=== PATIENT | male | born 1995 | race African-American/Black ===

== ENCOUNTER 2019-03-26 18:17 | Inpatient (IN) | payer MEDICAID ==
[~2019-03-26] VITALS: Ht 175.3 cm; Wt 74.3 kg
[2019-03-26] MEDS ORDERED: DIVA125T32 PO (18:48)
[2019-03-26] MEDS ORDERED: CHLO10 PO (18:48)
[2019-03-26] MEDS ORDERED: OLAN2.5T3 PO (18:48)
[2019-03-26 19:28] LABS: BASOPHILS % (AUTO) 0.6 % (0.0-2.0); EOSINOPHILS % (AUTO) 7.7 % (1.0-6.0); HEMATOCRIT 38.6 % (41-53); HEMOGLOBIN 12.3 g/dL (13.5-17.5); LYMPHOCYTES # (AUTO) 1.6 K/uL (1.0-4.8); LYMPHOCYTES % (AUTO) 37.8 % (22.0-44.0); MEAN CORPUSCULAR HGB CONC 31.8 G/dL (31.0-37.0); MEAN CORPUSCULAR VOLUME 72 fL (80-100); MONOCYTES # (AUTO) 0.2 K/uL (0.1-1.0); MONOCYTES % (AUTO) 5.7 % (2.0-9.0); NEUTROPHILS % (AUTO) 48.2 % (40.0-70.0); PLATELET COUNT (AUTO) 196 K/uL (150-450); RED BLOOD CELL COUNT(AUTO) 5.33 MIL/uL (4.50-5.90); RED CELL DISTRIBUTION WIDTH 15.6 % (11.5-14.5)
[2019-03-26 19:38] LABS: ANION GAP 7 mmol/L (8-16); CALCIUM, TOTAL 9.1 mg/dL (8.8-10.5); CARBON DIOXIDE 29 mmol/L (22-29); CHLORIDE 106 mmol/L (98-107); CREATININE 1.06 mg/dL (0.60-1.30); GLOMERULAR FILTR. RATE CALC > 60 mL/min (>60); GLUCOSE,RANDOM 86 mg/dL (70-110); POTASSIUM 3.8 mmol/L (3.5-5.1); SODIUM SERUM 142 mmol/L (136-145); UREA NITROGEN, BLOOD 10 mg/dL (7-18)
[2019-03-26 19:45] LABS: ALANINE AMINOTRANSFERASE 24 U/L (12-78); ALBUMIN 3.6 g/dL (3.4-5.0); ALKALINE PHOSPHATASE 75 U/L (46-116); ASPARTATE AMINOTRANSFERASE 27 U/L (15-37); BILIRUBIN,TOTAL 0.6 mg/dL (0.1-1.0); TOTAL PROTEIN, SERUM 6.9 g/dL (6.4-8.2); VALPROIC ACID 45 mcg/mL (50-100)
[2019-03-26] MEDS: HALOPERIDOL 5 MG TABLET PO PRN (21:50)
[2019-03-26] MEDS: ZOLPIDEM TARTRATE 10 MG TABLET PO PRN (21:51)
[2019-03-26] MEDS: LORazepam 2 MG TABLET PO PRN (21:51)
[2019-03-26 22:16] VITALS: BP 151/81
[2019-03-26] MEDS ORDERED: CloNIDine HCL 0.1 MG TABLET PO PRN (22:45)
[2019-03-26] MEDS ORDERED: ONDANSETRON HCL 4 MG TABLET PO PRN (22:45)
[2019-03-26] MEDS ORDERED: BENZOCAINE/MENTHOL LOZENGE MM PRN (22:45)
[2019-03-26] MEDS ORDERED: IBUPROFEN 600 MG TABLET PO PRN (22:45)
[2019-03-26] MEDS ORDERED: MAGNESIUM HYDROXIDE SUSPENSION 30 ML UDCUP PO PRN (22:45)
[2019-03-26] MEDS ORDERED: BACITRACIN 28.4 GM OINTMENT TP PRN (22:45)
[2019-03-26] MEDS ORDERED: ACETAMINOPHEN 325 MG TABLET PO PRN (22:45)
[2019-03-26] MEDS ORDERED: LOPERAMIDE HCL 2 MG CAPSULE PO PRN (22:45)
[2019-03-26] MEDS ORDERED: PETROLATUM,WHITE 28 GM JELLY TP PRN (22:45)
[2019-03-26] MEDS ORDERED: ALBUTEROL SULFATE HFA 90 MCG/PUFF 8 GM INHALER IH PRN (22:45)
[2019-03-26] MEDS ORDERED: MAG HYDROX/AL HYDROX/SIMETH ES 30 ML SUSPENSION UDCUP PO PRN (22:45)
[2019-03-27 00:11] VITALS: BP 146/86
[2019-03-27] MEDS: DOCUSATE SODIUM 100 MG CAPSULE PO SCH (09:30)
[2019-03-27] MEDS: OMEPRAZOLE 20 MG CAPSULE PO SCH (09:30)
[2019-03-27 11:20] VITALS: BP 118/74
[2019-03-27 16:00] VITALS: BP 131/80
[2019-03-27] MEDS: ChlorproMAZINE HCL 50 MG TABLET PO SCH (20:09)
[2019-03-27] MEDS: LORazepam 2 MG TABLET PO PRN (23:10)
[2019-03-27] MEDS: HALOPERIDOL 5 MG TABLET PO PRN (23:10)
[2019-03-28 00:02] VITALS: BP 142/92
[2019-03-28] MEDS: ZOLPIDEM TARTRATE 10 MG TABLET PO PRN ×2 (00:08→20:21)
[2019-03-28 08:05] VITALS: BP 134/73
[2019-03-28] MEDS: DOCUSATE SODIUM 100 MG CAPSULE PO SCH (09:22)
[2019-03-28] MEDS: FLUoxetine HCL 20 MG CAPSULE PO SCH (09:23)
[2019-03-28] MEDS: OMEPRAZOLE 20 MG CAPSULE PO SCH (09:23)
[2019-03-28 16:05] VITALS: BP 131/80
[2019-03-28] MEDS: ChlorproMAZINE HCL 50 MG TABLET PO SCH (20:20)
[2019-03-29 08:12] VITALS: BP 121/71
[2019-03-29] MEDS: FLUoxetine HCL 20 MG CAPSULE PO SCH (08:12)
[2019-03-29] MEDS: DOCUSATE SODIUM 100 MG CAPSULE PO SCH (08:12)
[2019-03-29] MEDS: OMEPRAZOLE 20 MG CAPSULE PO SCH (08:12)
[2019-03-29 18:03] VITALS: BP 133/65
[2019-03-29] MEDS: ChlorproMAZINE HCL 50 MG TABLET PO SCH (20:27)
[2019-03-29] MEDS: ZOLPIDEM TARTRATE 10 MG TABLET PO PRN (23:09)
[2019-03-30] VITALS: BP 141/77
[2019-03-30] MEDS: LORazepam 2 MG TABLET PO PRN (00:11)
[2019-03-30] MEDS: FLUoxetine HCL 20 MG CAPSULE PO SCH (08:42)
[2019-03-30] MEDS: DOCUSATE SODIUM 100 MG CAPSULE PO SCH (08:42)
[2019-03-30] MEDS: OMEPRAZOLE 20 MG CAPSULE PO SCH (08:42)
[2019-03-30 10:45] VITALS: BP 117/58
[2019-03-30 19:06] VITALS: BP 125/79
[2019-03-30] MEDS: ChlorproMAZINE HCL 50 MG TABLET PO SCH (20:22)
[2019-03-31] VITALS: BP 135/94
[2019-03-31] MEDS: LORazepam 2 MG TABLET PO PRN (00:07)
[2019-03-31] MEDS: ZOLPIDEM TARTRATE 10 MG TABLET PO PRN (00:07)
[2019-03-31] MEDS ORDERED: MULTIVITAMINS WITH IRON TABLET PO SCH (08:00)
[2019-03-31 08:11] VITALS: BP 128/71
[2019-03-31] MEDS: DOCUSATE SODIUM 100 MG CAPSULE PO SCH (09:04)
[2019-03-31] MEDS: OMEPRAZOLE 20 MG CAPSULE PO SCH (09:04)
[2019-03-31] MEDS: FLUoxetine HCL 20 MG CAPSULE PO SCH (09:04)
[2019-03-31] MEDS ORDERED: FLUO-191 PO (14:18)
[2019-03-31] MEDS ORDERED: DSS100 PO (14:20)
[2019-03-31] MEDS ORDERED: MVITFE PO (14:21)
[2019-03-31] MEDS ORDERED: OMEP20 PO (14:21)
== END 2019-03-31 15:05 | disposition home or self-care (01) | DRG 751 ==
LOC: EMS 18:19 → 3EI 21:22
PROVIDERS: ADMIT Psychiatry & Neurology Psychiatry; ATTEND Psychiatry & Neurology Psychiatry
DX: F33.2 Major depressive disorder, recurrent severe without psychotic features (principal); R45.851 Suicidal ideations; F25.0 Schizoaffective disorder, bipolar type; F12.90 Cannabis use, unspecified, uncomplicated; F17.200 Nicotine dependence, unspecified, uncomplicated; F41.9 Anxiety disorder, unspecified; F60.3 Borderline personality disorder; F90.9 Attention-deficit hyperactivity disorder, unspecified type; G47.00 Insomnia, unspecified; K59.00 Constipation, unspecified; Z59.0 Homelessness; Z91.5 Personal history of self-harm; Z71.6 Tobacco abuse counseling
CPT/HCPCS: G0480

== ENCOUNTER 2019-04-06 15:01 | Inpatient (IN) | payer MEDICAID ==
[~2019-04-06] VITALS: Ht 175.3 cm; Wt 70.6 kg
[~2019-04-06 15:01] MED LIST: CHLO10 PO; DSS100 PO; FLUO-191 PO; MVITFE PO; OMEP20 PO
[2019-04-06 17:03] LABS: BASOPHILS % (AUTO) 0.4 % (0.0-2.0); EOSINOPHILS % (AUTO) 1.7 % (1.0-6.0); HEMATOCRIT 43.3 % (41-53); LYMPHOCYTES # (AUTO) 2.1 K/uL (1.0-4.8); LYMPHOCYTES % (AUTO) 26.2 % (22.0-44.0); MEAN CORPUSCULAR HEMOGLOBIN 23.7 pg (26.0-34.0); MEAN CORPUSCULAR HGB CONC 32.2 G/dL (31.0-37.0); MEAN CORPUSCULAR VOLUME 74 fL (80-100); MONOCYTES # (AUTO) 0.7 K/uL (0.1-1.0); MONOCYTES % (AUTO) 9.4 % (2.0-9.0); NEUTROPHILS # (AUTO) 4.9 K/uL (1.8-7.7); NEUTROPHILS % (AUTO) 62.3 % (40.0-70.0); PLATELET COUNT (AUTO) 260 K/uL (150-450); RED BLOOD CELL COUNT(AUTO) 5.89 MIL/uL (4.50-5.90); RED CELL DISTRIBUTION WIDTH 14.6 % (11.5-14.5)
[2019-04-06 17:38] LABS: ANION GAP 8 mmol/L (8-16); CALCIUM, TOTAL 10.3 mg/dL (8.8-10.5); CARBON DIOXIDE 27 mmol/L (22-29); CHLORIDE 100 mmol/L (98-107); CREATININE 1.19 mg/dL (0.60-1.30); GLOMERULAR FILTR. RATE CALC > 60 mL/min (>60); GLUCOSE,RANDOM 91 mg/dL (70-110); POTASSIUM 4.1 mmol/L (3.5-5.1); SODIUM SERUM 135 mmol/L (136-145); UREA NITROGEN, BLOOD 18 mg/dL (7-18)
[2019-04-06 17:44] LABS: ALANINE AMINOTRANSFERASE 26 U/L (12-78); ALBUMIN 4.5 g/dL (3.4-5.0); ALKALINE PHOSPHATASE 91 U/L (46-116); ASPARTATE AMINOTRANSFERASE 36 U/L (15-37); BILIRUBIN,TOTAL 1.1 mg/dL (0.1-1.0); TOTAL PROTEIN, SERUM 8.3 g/dL (6.4-8.2)
[2019-04-06] MEDS ORDERED: DIVA500T52 PO (18:32)
[2019-04-06] MEDS ORDERED: CHLO50 PO (18:41)
[2019-04-06 19:08] LABS: AMPHET/METH SCREEN,URINE NEGATIVE (NEGATIVE); BARBITURATE SCREEN, URINE NEGATIVE (NEGATIVE); BENZODIAZEPINES SCREEN,URINE NEGATIVE (NEGATIVE); CANNABINOID SCREEN,URINE POSITIVE (NEGATIVE); COCAINE SCREEN,URINE NEGATIVE (NEGATIVE); METHADONE SCREEN, URINE NEGATIVE (NEGATIVE); OPIATE SCREEN,URINE NEGATIVE (NEGATIVE)
[2019-04-06 19:11] LABS: PHENCYCLIDINE SCREEN,URINE NEGATIVE (NEGATIVE)
[2019-04-06 21:11] LABS: VALPROIC ACID < 3 mcg/mL (50-100)
[2019-04-06] MEDS ORDERED: HALOPERIDOL 5 MG TABLET PO PRN (22:15)
[2019-04-06] MEDS ORDERED: ZOLPIDEM TARTRATE 10 MG TABLET PO PRN (22:15)
[2019-04-06] MEDS ORDERED: LORazepam 2 MG TABLET PO PRN (22:15)
[2019-04-07 02:33] VITALS: BP 119/79
[2019-04-07 07:39] LABS: HEMOGLOBIN A1C 5.7 % (4.5-6.2)
[2019-04-07 08:03] LABS: CHOL/HDL RATIO 2.2 (4.2-7.3); FREE T4 (FREE THYROXINE) 0.93 ng/dL (0.76-1.46); THYROID STIMULATING HORMONE 0.87 uIU/mL (0.36-3.74)
[2019-04-07 08:17] VITALS: BP 104/59
[2019-04-07] MEDS ORDERED: CloNIDine HCL 0.1 MG TABLET PO PRN (08:45)
[2019-04-07] MEDS ORDERED: PETROLATUM,WHITE 28 GM JELLY TP PRN (08:45)
[2019-04-07] MEDS ORDERED: BENZOCAINE/MENTHOL LOZENGE MM PRN (08:45)
[2019-04-07] MEDS ORDERED: IBUPROFEN 600 MG TABLET PO PRN (08:45)
[2019-04-07] MEDS ORDERED: LOPERAMIDE HCL 2 MG CAPSULE PO PRN (08:45)
[2019-04-07] MEDS ORDERED: BACITRACIN 28.4 GM OINTMENT TP PRN (08:45)
[2019-04-07] MEDS ORDERED: ONDANSETRON HCL 4 MG TABLET PO PRN (08:45)
[2019-04-07] MEDS ORDERED: MAGNESIUM HYDROXIDE SUSPENSION 30 ML UDCUP PO PRN (08:45)
[2019-04-07] MEDS ORDERED: MAG HYDROX/AL HYDROX/SIMETH ES 30 ML SUSPENSION UDCUP PO PRN (08:45)
[2019-04-07] MEDS ORDERED: ALBUTEROL SULFATE HFA 90 MCG/PUFF 8 GM INHALER IH PRN (08:45)
[2019-04-07] MEDS ORDERED: ACETAMINOPHEN 325 MG TABLET PO PRN (08:45)
[2019-04-07] MEDS: DOCUSATE SODIUM 100 MG CAPSULE PO SCH (09:20)
[2019-04-07] MEDS: OMEPRAZOLE 20 MG CAPSULE PO SCH (09:20)
[2019-04-07] MEDS: ChlorproMAZINE HCL 50 MG TABLET PO SCH (16:16)
[2019-04-07 16:58] VITALS: BP 127/68
[2019-04-08 07:04] VITALS: BP 129/65
[2019-04-08] MEDS: OMEPRAZOLE 20 MG CAPSULE PO SCH (08:20)
[2019-04-08] MEDS: FLUoxetine HCL 20 MG CAPSULE PO SCH (08:20)
[2019-04-08] MEDS: ChlorproMAZINE HCL 50 MG TABLET PO SCH ×2 (08:20→16:32)
[2019-04-08] MEDS: DOCUSATE SODIUM 100 MG CAPSULE PO SCH (08:20)
[2019-04-08 08:31] VITALS: BP 140/83
[2019-04-08 17:34] VITALS: BP 126/60
[2019-04-08] MEDS ORDERED: LORazepam 2 MG/ML VIAL ONE (19:13)
[2019-04-08] MEDS ORDERED: HALOPERIDOL LACTATE 5 MG/ML VIAL ONE (19:14)
[2019-04-08] MEDS ORDERED: DiphenhydrAMINE HCL 50 MG/ML VIAL ONE (19:14)
[2019-04-08] MEDS ORDERED: LORazepam 2 MG/ML VIAL IM ONE (19:15)
[2019-04-08] MEDS ORDERED: HALOPERIDOL LACTATE 5 MG/ML VIAL IM ONE (19:15)
[2019-04-08] MEDS ORDERED: DiphenhydrAMINE HCL 50 MG/ML VIAL IM ONE (19:15)
[2019-04-09 06:33] VITALS: BP 114/60
[2019-04-09 08:43] VITALS: BP 115/60
[2019-04-09] MEDS: DOCUSATE SODIUM 100 MG CAPSULE PO SCH (09:27)
[2019-04-09] MEDS: ChlorproMAZINE HCL 50 MG TABLET PO SCH ×2 (09:27→16:22)
[2019-04-09] MEDS: OMEPRAZOLE 20 MG CAPSULE PO SCH (09:27)
[2019-04-09] MEDS: FLUoxetine HCL 20 MG CAPSULE PO SCH (09:27)
[2019-04-09 16:00] VITALS: BP 127/68
[2019-04-10 06:29] VITALS: BP 122/65
[2019-04-10] MEDS ORDERED: DSS100 PO (08:15)
[2019-04-10] MEDS ORDERED: OMEP20 PO (08:15)
[2019-04-10] MEDS ORDERED: FLUO-191 PO (08:15)
[2019-04-10 08:21] VITALS: BP 118/62
[2019-04-10] MEDS: ChlorproMAZINE HCL 50 MG TABLET PO SCH (09:06)
[2019-04-10] MEDS: FLUoxetine HCL 20 MG CAPSULE PO SCH (09:06)
[2019-04-10] MEDS: OMEPRAZOLE 20 MG CAPSULE PO SCH (09:06)
[2019-04-10] MEDS: DOCUSATE SODIUM 100 MG CAPSULE PO SCH (09:06)
[2019-04-10 16:16] VITALS: BP 136/79
== END 2019-04-10 16:30 | disposition home or self-care (01) | DRG 751 ==
LOC: EMS 15:04 → B2S 22:00 → B3A 04-08 19:45
PROVIDERS: ADMIT Psychiatry & Neurology Psychiatry; ATTEND Psychiatry & Neurology Psychiatry
DX: F33.2 Major depressive disorder, recurrent severe without psychotic features (principal); F20.9 Schizophrenia, unspecified; R45.851 Suicidal ideations; F12.90 Cannabis use, unspecified, uncomplicated; F41.9 Anxiety disorder, unspecified; F90.9 Attention-deficit hyperactivity disorder, unspecified type; F17.210 Nicotine dependence, cigarettes, uncomplicated; F60.3 Borderline personality disorder; G47.00 Insomnia, unspecified; K59.00 Constipation, unspecified; Z59.0 Homelessness; Z91.5 Personal history of self-harm; Z91.018 Allergy to other foods; Z56.0 Unemployment, unspecified; Z79.899 Other long term (current) drug therapy
CPT/HCPCS: 83036; 84439; 84443; 87081; G0480; J1200; J1630; J2060

== ENCOUNTER 2019-06-05 10:02 | Inpatient (IN) | payer MEDICAID ==
[~2019-06-05] VITALS: Ht 175.3 cm; Wt 72.1 kg
[~2019-06-05 10:02] MED LIST changes: -CHLO10 PO; +CHLO50 PO; -MVITFE PO
[2019-06-05] MEDS ORDERED: DIVA125T32 PO (10:21)
[2019-06-05] MEDS ORDERED: LEVO25TA9 PO (10:21)
[2019-06-05 10:54] LABS: BASOPHILS % (AUTO) 0.7 % (0.0-2.0); EOSINOPHILS % (AUTO) 7.5 % (1.0-6.0); HEMATOCRIT 40.5 % (41-53); HEMOGLOBIN 12.6 g/dL (13.5-17.5); LYMPHOCYTES # (AUTO) 1.9 K/uL (1.0-4.8); LYMPHOCYTES % (AUTO) 39.6 % (22.0-44.0); MEAN CORPUSCULAR HEMOGLOBIN 23.1 pg (26.0-34.0); MEAN CORPUSCULAR HGB CONC 31.2 G/dL (31.0-37.0); MEAN CORPUSCULAR VOLUME 74 fL (80-100); MONOCYTES # (AUTO) 0.4 K/uL (0.1-1.0); NEUTROPHILS # (AUTO) 2.2 K/uL (1.8-7.7); NEUTROPHILS % (AUTO) 44.2 % (40.0-70.0); PLATELET COUNT (AUTO) 210 K/uL (150-450); RED BLOOD CELL COUNT(AUTO) 5.47 MIL/uL (4.50-5.90); RED CELL DISTRIBUTION WIDTH 15.6 % (11.5-14.5)
[2019-06-05 11:05] LABS: ANION GAP 10 mmol/L (8-16); CALCIUM, TOTAL 9.5 mg/dL (8.8-10.5); CARBON DIOXIDE 27 mmol/L (22-29); CHLORIDE 102 mmol/L (98-107); CREATININE 0.86 mg/dL (0.60-1.30); GLOMERULAR FILTR. RATE CALC > 60 mL/min (>60); GLUCOSE,RANDOM 112 mg/dL (70-110); POTASSIUM 4.1 mmol/L (3.5-5.1); SODIUM SERUM 139 mmol/L (136-145); UREA NITROGEN, BLOOD 17 mg/dL (7-18)
[2019-06-05 11:11] LABS: ALANINE AMINOTRANSFERASE 20 U/L (12-78); ALBUMIN 4.1 g/dL (3.4-5.0); ALKALINE PHOSPHATASE 72 U/L (46-116); ASPARTATE AMINOTRANSFERASE 27 U/L (15-37); BILIRUBIN,TOTAL 0.5 mg/dL (0.1-1.0); TOTAL PROTEIN, SERUM 7.5 g/dL (6.4-8.2); VALPROIC ACID 59 mcg/mL (50-100)
[2019-06-05] MEDS ORDERED: BusPIRone HCL 10 MG TABLET PO ONE (11:30)
[2019-06-05 14:05] LABS: AMPHET/METH SCREEN,URINE NEGATIVE (NEGATIVE); BARBITURATE SCREEN, URINE NEGATIVE (NEGATIVE); BENZODIAZEPINES SCREEN,URINE NEGATIVE (NEGATIVE); CANNABINOID SCREEN,URINE POSITIVE (NEGATIVE); COCAINE SCREEN,URINE NEGATIVE (NEGATIVE); METHADONE SCREEN, URINE NEGATIVE (NEGATIVE); OPIATE SCREEN,URINE NEGATIVE (NEGATIVE); PHENCYCLIDINE SCREEN,URINE NEGATIVE (NEGATIVE)
[2019-06-05] MEDS: ChlorproMAZINE HCL 50 MG TABLET PO SCH (18:55)
[2019-06-05] MEDS ORDERED: ONDANSETRON HCL 4 MG TABLET PO PRN (19:15)
[2019-06-05] MEDS ORDERED: PETROLATUM,WHITE 28 GM JELLY TP PRN (19:15)
[2019-06-05] MEDS ORDERED: MAG HYDROX/AL HYDROX/SIMETH ES 30 ML SUSPENSION UDCUP PO PRN (19:15)
[2019-06-05] MEDS ORDERED: IBUPROFEN 600 MG TABLET PO PRN (19:15)
[2019-06-05] MEDS ORDERED: LOPERAMIDE HCL 2 MG CAPSULE PO PRN (19:15)
[2019-06-05] MEDS ORDERED: BACITRACIN 28.4 GM OINTMENT TP PRN (19:15)
[2019-06-05] MEDS ORDERED: CloNIDine HCL 0.1 MG TABLET PO PRN (19:15)
[2019-06-05] MEDS ORDERED: BENZOCAINE/MENTHOL LOZENGE MM PRN (19:15)
[2019-06-05] MEDS ORDERED: MAGNESIUM HYDROXIDE SUSPENSION 30 ML UDCUP PO PRN (19:15)
[2019-06-05] MEDS ORDERED: ACETAMINOPHEN 325 MG TABLET PO PRN (19:15)
[2019-06-05] MEDS ORDERED: ALBUTEROL SULFATE HFA 90 MCG/PUFF 8 GM INHALER IH PRN (19:15)
[2019-06-05 19:20] VITALS: BP 139/78
[2019-06-05] MEDS: HALOPERIDOL 5 MG TABLET PO PRN (20:12)
[2019-06-05] MEDS: ZOLPIDEM TARTRATE 10 MG TABLET PO PRN (20:12)
[2019-06-06 06:20] VITALS: BP 115/71
[2019-06-06 08:02] VITALS: BP 114/60
[2019-06-06] MEDS: FLUoxetine HCL 20 MG CAPSULE PO SCH (08:30)
[2019-06-06] MEDS: ChlorproMAZINE HCL 50 MG TABLET PO SCH ×2 (08:30→16:44)
[2019-06-06] MEDS: DOCUSATE SODIUM 100 MG CAPSULE PO SCH (08:30)
[2019-06-06] MEDS: OMEPRAZOLE 20 MG CAPSULE PO SCH (08:31)
[2019-06-06] MEDS: NICOTINE 21 MG/24 HOUR PATCH TD SCH (09:00)
[2019-06-06 16:22] VITALS: BP 105/60
[2019-06-06] MEDS: LORazepam 2 MG TABLET PO PRN (16:44)
[2019-06-06] MEDS: HALOPERIDOL 5 MG TABLET PO PRN (20:38)
[2019-06-06] MEDS: ZOLPIDEM TARTRATE 10 MG TABLET PO PRN (20:38)
[2019-06-07] MEDS: LORazepam 2 MG TABLET PO PRN ×2 (01:48→16:46)
[2019-06-07 02:17] VITALS: BP 112/68
[2019-06-07 08:18] VITALS: BP 108/66
[2019-06-07] MEDS: ChlorproMAZINE HCL 50 MG TABLET PO SCH ×2 (08:33→16:46)
[2019-06-07] MEDS: FLUoxetine HCL 20 MG CAPSULE PO SCH (08:34)
[2019-06-07] MEDS: DOCUSATE SODIUM 100 MG CAPSULE PO SCH (08:35)
[2019-06-07] MEDS: OMEPRAZOLE 20 MG CAPSULE PO SCH (08:35)
[2019-06-07] MEDS: NICOTINE 21 MG/24 HOUR PATCH TD SCH (09:00)
[2019-06-07 16:00] VITALS: BP 122/81
[2019-06-07] MEDS: HALOPERIDOL 5 MG TABLET PO PRN (16:46)
[2019-06-07] MEDS: ZOLPIDEM TARTRATE 10 MG TABLET PO PRN (21:17)
[2019-06-08 06:07] VITALS: BP 118/64
[2019-06-08 08:16] VITALS: BP 138/91
[2019-06-08] MEDS: OMEPRAZOLE 20 MG CAPSULE PO SCH (09:11)
[2019-06-08] MEDS: FLUoxetine HCL 20 MG CAPSULE PO SCH (09:12)
[2019-06-08] MEDS: DOCUSATE SODIUM 100 MG CAPSULE PO SCH (09:12)
[2019-06-08] MEDS: ChlorproMAZINE HCL 50 MG TABLET PO SCH (09:12)
[2019-06-08] MEDS: NICOTINE 21 MG/24 HOUR PATCH TD SCH (09:35)
[2019-06-08] MEDS ORDERED: CHLO50 PO (13:10)
[2019-06-08] MEDS ORDERED: FLUO20CA30 PO (13:10)
== END 2019-06-08 14:09 | disposition home or self-care (01) | DRG 751 ==
LOC: EMS 10:03 → B3A 16:37
PROVIDERS: ADMIT Psychiatry & Neurology Child & Adolescent Psychiatry; ATTEND Psychiatry & Neurology Child & Adolescent Psychiatry
DX: F33.2 Major depressive disorder, recurrent severe without psychotic features (principal); R45.851 Suicidal ideations; F12.90 Cannabis use, unspecified, uncomplicated; Z59.0 Homelessness; F41.9 Anxiety disorder, unspecified; F90.9 Attention-deficit hyperactivity disorder, unspecified type; G47.00 Insomnia, unspecified; K59.00 Constipation, unspecified; F17.200 Nicotine dependence, unspecified, uncomplicated
CPT/HCPCS: G0480

== ENCOUNTER 2019-07-11 17:45 | Inpatient (IN) | payer MEDICAID ==
[~2019-07-11] VITALS: Ht 175.3 cm; Wt 77.2 kg
[~2019-07-11 17:45] MED LIST changes: -DSS100 PO; -FLUO-191 PO; +FLUO20CA30 PO; -OMEP20 PO
[2019-07-11 18:44] LABS: BASOPHILS % (AUTO) 0.8 % (0.0-2.0); EOSINOPHILS % (AUTO) 5.5 % (1.0-6.0); HEMATOCRIT 37.6 % (41-53); LYMPHOCYTES # (AUTO) 2.2 K/uL (1.0-4.8); LYMPHOCYTES % (AUTO) 38.1 % (22.0-44.0); MEAN CORPUSCULAR HEMOGLOBIN 23.5 pg (26.0-34.0); MEAN CORPUSCULAR HGB CONC 31.8 G/dL (31.0-37.0); MEAN CORPUSCULAR VOLUME 74 fL (80-100); MONOCYTES # (AUTO) 0.5 K/uL (0.1-1.0); MONOCYTES % (AUTO) 7.8 % (2.0-9.0); NEUTROPHILS # (AUTO) 2.8 K/uL (1.8-7.7); NEUTROPHILS % (AUTO) 47.8 % (40.0-70.0); PLATELET COUNT (AUTO) 247 K/uL (150-450); RED CELL DISTRIBUTION WIDTH 15.3 % (11.5-14.5)
[2019-07-11 18:54] LABS: ANION GAP 8 mmol/L (8-16); CALCIUM, TOTAL 9.1 mg/dL (8.8-10.5); CARBON DIOXIDE 28 mmol/L (22-29); CHLORIDE 108 mmol/L (98-107); GLOMERULAR FILTR. RATE CALC > 60 mL/min (>60); GLUCOSE,RANDOM 85 mg/dL (70-110); POTASSIUM 4.4 mmol/L (3.5-5.1); SODIUM SERUM 144 mmol/L (136-145); UREA NITROGEN, BLOOD 15 mg/dL (7-18)
[2019-07-11 18:54] LABS: AMPHET/METH SCREEN,URINE NEGATIVE (NEGATIVE); BARBITURATE SCREEN, URINE NEGATIVE (NEGATIVE); BENZODIAZEPINES SCREEN,URINE NEGATIVE (NEGATIVE); CANNABINOID SCREEN,URINE POSITIVE (NEGATIVE); COCAINE SCREEN,URINE NEGATIVE (NEGATIVE); METHADONE SCREEN, URINE NEGATIVE (NEGATIVE); OPIATE SCREEN,URINE NEGATIVE (NEGATIVE); PHENCYCLIDINE SCREEN,URINE NEGATIVE (NEGATIVE)
[2019-07-11 19:01] LABS: ALANINE AMINOTRANSFERASE 13 U/L (12-78); ALBUMIN 3.9 g/dL (3.4-5.0); ALKALINE PHOSPHATASE 76 U/L (46-116); ASPARTATE AMINOTRANSFERASE 19 U/L (15-37); BILIRUBIN,TOTAL 0.6 mg/dL (0.1-1.0); TOTAL PROTEIN, SERUM 7.2 g/dL (6.4-8.2)
[2019-07-11] MEDS ORDERED: DiphenhydrAMINE HCL 50 MG/ML VIAL IM ONE (20:15)
[2019-07-11] MEDS ORDERED: LORazepam 2 MG/ML VIAL IM ONE (20:15)
[2019-07-11] MEDS ORDERED: HALOPERIDOL LACTATE 5 MG/ML VIAL IM ONE (20:15)
[2019-07-11] MEDS ORDERED: HALOPERIDOL 5 MG TABLET PO PRN (21:00)
[2019-07-12 02:56] VITALS: BP 122/72
[2019-07-12] MEDS ORDERED: INFLUENZA VIRUS VACCINE QVS 2019-20 (3YR+)/PF 60 MCG/0.5 ML SYRINGE IM ONE (03:30)
[2019-07-12 08:00] VITALS: BP 116/60
[2019-07-12] MEDS ORDERED: MAG HYDROX/AL HYDROX/SIMETH ES 30 ML SUSPENSION UDCUP PO PRN (08:30)
[2019-07-12] MEDS ORDERED: LOPERAMIDE HCL 2 MG CAPSULE PO PRN (08:30)
[2019-07-12] MEDS ORDERED: PETROLATUM,WHITE 28 GM JELLY TP PRN (08:30)
[2019-07-12] MEDS ORDERED: IBUPROFEN 400 MG TABLET PO PRN (08:30)
[2019-07-12] MEDS ORDERED: DOCUSATE SODIUM 100 MG CAPSULE PO PRN (08:30)
[2019-07-12] MEDS ORDERED: CloNIDine HCL 0.1 MG TABLET PO PRN (08:30)
[2019-07-12] MEDS ORDERED: GuaiFENesin/D-METHORPHAN [SUGAR-FREE] 200-20MG/10 ML SYRUP UDCUP PO PRN (08:30)
[2019-07-12] MEDS ORDERED: ALBUTEROL SULFATE HFA 90 MCG/PUFF 8 GM INHALER IH PRN (08:30)
[2019-07-12] MEDS ORDERED: MAGNESIUM HYDROXIDE SUSPENSION 30 ML UDCUP PO PRN (08:30)
[2019-07-12] MEDS ORDERED: ACETAMINOPHEN 325 MG TABLET PO PRN (08:30)
[2019-07-12] MEDS ORDERED: NICOTINE 14 MG/24 HOUR PATCH TD PRN (08:30)
[2019-07-12] MEDS ORDERED: ONDANSETRON HCL 4 MG TABLET PO PRN (08:30)
[2019-07-12] MEDS: FLUoxetine HCL 20 MG CAPSULE PO SCH (09:55)
[2019-07-12] MEDS: ChlorproMAZINE HCL 50 MG TABLET PO SCH ×2 (09:55→20:29)
[2019-07-12] MEDS: LORazepam 2 MG TABLET PO PRN ×2 (09:55→16:17)
[2019-07-12 16:15] VITALS: BP 118/68
[2019-07-12] MEDS: ZOLPIDEM TARTRATE 10 MG TABLET PO PRN (20:29)
[2019-07-13 00:30] VITALS: BP 120/75
[2019-07-13 09:51] VITALS: BP 127/64
[2019-07-13] MEDS: ChlorproMAZINE HCL 50 MG TABLET PO SCH ×2 (10:23→20:01)
[2019-07-13] MEDS: FLUoxetine HCL 20 MG CAPSULE PO SCH (10:24)
[2019-07-13] MEDS: LORazepam 2 MG TABLET PO PRN (14:58)
[2019-07-13 16:00] VITALS: BP 116/65
[2019-07-13] MEDS: ZOLPIDEM TARTRATE 10 MG TABLET PO PRN (21:25)
[2019-07-14 05:34] VITALS: BP 126/84
[2019-07-14] MEDS: FLUoxetine HCL 20 MG CAPSULE PO SCH (09:07)
[2019-07-14] MEDS: ChlorproMAZINE HCL 50 MG TABLET PO SCH (09:07)
[2019-07-14 16:00] VITALS: BP 131/67
== END 2019-07-14 17:25 | disposition home or self-care (01) | DRG 750 ==
LOC: EMS 17:47 → B3A 21:31 → EMS 23:00
DX: F25.1 Schizoaffective disorder, depressive type (principal); R45.851 Suicidal ideations; D64.9 Anemia, unspecified; F12.10 Cannabis abuse, uncomplicated; E03.9 Hypothyroidism, unspecified; F32.9 Major depressive disorder, single episode, unspecified; F90.9 Attention-deficit hyperactivity disorder, unspecified type; F41.9 Anxiety disorder, unspecified; K21.9 Gastro-esophageal reflux disease without esophagitis; K59.00 Constipation, unspecified; F17.210 Nicotine dependence, cigarettes, uncomplicated; Z91.5 Personal history of self-harm; Z28.21 Immunization not carried out because of patient refusal; Z79.899 Other long term (current) drug therapy
CPT/HCPCS: 90686; 96372; G0480; J1200; J1630; J2060

== ENCOUNTER 2019-07-18 15:49 | Inpatient (IN) | payer MEDICAID ==
[~2019-07-18] VITALS: Ht 175.3 cm; Wt 74.8 kg
[2019-07-18 17:10] LABS: BASOPHILS % (AUTO) 1.1 % (0.0-2.0); EOSINOPHILS % (AUTO) 4.5 % (1.0-6.0); HEMATOCRIT 43.2 % (41-53); HEMOGLOBIN 13.7 g/dL (13.5-17.5); LYMPHOCYTES # (AUTO) 1.6 K/uL (1.0-4.8); LYMPHOCYTES % (AUTO) 38.8 % (22.0-44.0); MEAN CORPUSCULAR HEMOGLOBIN 23.5 pg (26.0-34.0); MEAN CORPUSCULAR HGB CONC 31.8 G/dL (31.0-37.0); MEAN CORPUSCULAR VOLUME 74 fL (80-100); MONOCYTES # (AUTO) 0.4 K/uL (0.1-1.0); MONOCYTES % (AUTO) 9.8 % (2.0-9.0); NEUTROPHILS # (AUTO) 1.9 K/uL (1.8-7.7); NEUTROPHILS % (AUTO) 45.8 % (40.0-70.0); PLATELET COUNT (AUTO) 222 K/uL (150-450); RED BLOOD CELL COUNT(AUTO) 5.84 MIL/uL (4.50-5.90); RED CELL DISTRIBUTION WIDTH 15.8 % (11.5-14.5)
[2019-07-18 17:18] LABS: ANION GAP 10 mmol/L (8-16); CALCIUM, TOTAL 9.5 mg/dL (8.8-10.5); CARBON DIOXIDE 28 mmol/L (22-29); CHLORIDE 103 mmol/L (98-107); CREATININE 0.97 mg/dL (0.60-1.30); GLOMERULAR FILTR. RATE CALC > 60 mL/min (>60); GLUCOSE,RANDOM 97 mg/dL (70-110); POTASSIUM 4.1 mmol/L (3.5-5.1); SODIUM SERUM 141 mmol/L (136-145); UREA NITROGEN, BLOOD 12 mg/dL (7-18)
[2019-07-18 17:18] LABS: AMPHET/METH SCREEN,URINE NEGATIVE (NEGATIVE); BARBITURATE SCREEN, URINE NEGATIVE (NEGATIVE); BENZODIAZEPINES SCREEN,URINE NEGATIVE (NEGATIVE); CANNABINOID SCREEN,URINE POSITIVE (NEGATIVE); COCAINE SCREEN,URINE NEGATIVE (NEGATIVE); METHADONE SCREEN, URINE NEGATIVE (NEGATIVE); OPIATE SCREEN,URINE NEGATIVE (NEGATIVE)
[2019-07-18 17:24] LABS: ALANINE AMINOTRANSFERASE 25 U/L (12-78); ALKALINE PHOSPHATASE 70 U/L (46-116); ASPARTATE AMINOTRANSFERASE 25 U/L (15-37); BILIRUBIN,TOTAL 1.1 mg/dL (0.1-1.0); TOTAL PROTEIN, SERUM 7.7 g/dL (6.4-8.2)
[2019-07-18 17:39] LABS: PHENCYCLIDINE SCREEN,URINE NEGATIVE (NEGATIVE)
[2019-07-18 17:50] LABS: PLATELET MORPHOLOGY COMMENT LARGE PLTS PRESENT
[2019-07-18] MEDS ORDERED: OLANZapine 5 MG TABLET PO ONE (20:30)
[2019-07-18] MEDS ORDERED: LORazepam 2 MG TABLET PO ONE (20:30)
[2019-07-18] MEDS ORDERED: DiphenhydrAMINE HCL 25 MG CAPSULE PO ONE (20:30)
[2019-07-19] MEDS ORDERED: INFLUENZA VIRUS VACCINE QVS 2019-20 (3YR+)/PF 60 MCG/0.5 ML SYRINGE IM ONE (05:30)
[2019-07-19 07:16] VITALS: BP_SYST 125; BP_SYST 132; BP_DIAS 71; BP_DIAS 73
[2019-07-19] MEDS ORDERED: LOPERAMIDE HCL 2 MG CAPSULE PO PRN (08:00)
[2019-07-19] MEDS ORDERED: DOCUSATE SODIUM 100 MG CAPSULE PO PRN (08:00)
[2019-07-19] MEDS ORDERED: IBUPROFEN 400 MG TABLET PO PRN (08:00)
[2019-07-19] MEDS ORDERED: MAG HYDROX/AL HYDROX/SIMETH ES 30 ML SUSPENSION UDCUP PO PRN (08:00)
[2019-07-19] MEDS ORDERED: PETROLATUM,WHITE 28 GM JELLY TP PRN (08:00)
[2019-07-19] MEDS ORDERED: ONDANSETRON HCL 4 MG TABLET PO PRN (08:00)
[2019-07-19] MEDS ORDERED: ALBUTEROL SULFATE HFA 90 MCG/PUFF 8 GM INHALER IH PRN (08:00)
[2019-07-19] MEDS ORDERED: NICOTINE 14 MG/24 HOUR PATCH TD PRN (08:00)
[2019-07-19] MEDS ORDERED: GuaiFENesin/D-METHORPHAN [SUGAR-FREE] 200-20MG/10 ML SYRUP UDCUP PO PRN (08:00)
[2019-07-19] MEDS ORDERED: ACETAMINOPHEN 325 MG TABLET PO PRN (08:00)
[2019-07-19] MEDS ORDERED: CloNIDine HCL 0.1 MG TABLET PO PRN (08:00)
[2019-07-19] MEDS ORDERED: MAGNESIUM HYDROXIDE SUSPENSION 30 ML UDCUP PO PRN (08:00)
[2019-07-19 08:37] VITALS: BP 110/61
[2019-07-19 16:17] VITALS: BP 112/64
[2019-07-19] MEDS: ChlorproMAZINE HCL 50 MG TABLET PO SCH (20:21)
[2019-07-19] MEDS: ZOLPIDEM TARTRATE 10 MG TABLET PO PRN (20:24)
[2019-07-20 03:31] VITALS: BP 125/74
[2019-07-20 08:11] LABS: BASOPHILS % (AUTO) 0.9 % (0.0-2.0); EOSINOPHILS % (AUTO) 7.7 % (1.0-6.0); HEMATOCRIT 41.9 % (41-53); HEMOGLOBIN 13.2 g/dL (13.5-17.5); LYMPHOCYTES # (AUTO) 2.9 K/uL (1.0-4.8); LYMPHOCYTES % (AUTO) 54.4 % (22.0-44.0); MEAN CORPUSCULAR HEMOGLOBIN 23.4 pg (26.0-34.0); MEAN CORPUSCULAR HGB CONC 31.5 G/dL (31.0-37.0); MEAN CORPUSCULAR VOLUME 74 fL (80-100); MONOCYTES # (AUTO) 0.6 K/uL (0.1-1.0); MONOCYTES % (AUTO) 11.7 % (2.0-9.0); NEUTROPHILS # (AUTO) 1.3 K/uL (1.8-7.7); NEUTROPHILS % (AUTO) 25.3 % (40.0-70.0); PLATELET COUNT (AUTO) 202 K/uL (150-450); RED BLOOD CELL COUNT(AUTO) 5.63 MIL/uL (4.50-5.90); RED CELL DISTRIBUTION WIDTH 15.3 % (11.5-14.5)
[2019-07-20 08:15] VITALS: BP 112/63
[2019-07-20 08:24] LABS: HEMOGLOBIN A1C 4.8 % (4.5-6.2)
[2019-07-20 08:32] LABS: ALANINE AMINOTRANSFERASE 22 U/L (12-78); ALBUMIN 3.3 g/dL (3.4-5.0); ALKALINE PHOSPHATASE 68 U/L (46-116); ANION GAP 6 mmol/L (8-16); ASPARTATE AMINOTRANSFERASE 17 U/L (15-37); BILIRUBIN,TOTAL 0.5 mg/dL (0.1-1.0); CALCIUM, TOTAL 8.9 mg/dL (8.8-10.5); CARBON DIOXIDE 30 mmol/L (22-29); CHLORIDE 103 mmol/L (98-107); CHOL/HDL RATIO 2.7 (4.2-7.3); CHOLESTEROL 149 mg/dL (131-200); CREATININE 0.93 mg/dL (0.60-1.30); FREE T4 (FREE THYROXINE) 0.89 ng/dL (0.76-1.46); GLOMERULAR FILTR. RATE CALC > 60 mL/min (>60); GLUCOSE,RANDOM 87 mg/dL (70-110); HDL CHOLESTEROL 55 mg/dL (40-60); LDL CHOL (CALC.) 80 mg/dL (0-130); POTASSIUM 4.6 mmol/L (3.5-5.1); SODIUM SERUM 139 mmol/L (136-145); TOTAL PROTEIN, SERUM 6.4 g/dL (6.4-8.2); TRIGLYCERIDES 70 mg/dL (15-150); UREA NITROGEN, BLOOD 17 mg/dL (7-18)
[2019-07-20] MEDS: FLUoxetine HCL 20 MG CAPSULE PO SCH (09:00)
[2019-07-20] MEDS: ChlorproMAZINE HCL 50 MG TABLET PO SCH ×2 (09:00→20:26)
[2019-07-20] MEDS ORDERED: DiphenhydrAMINE HCL 50 MG/ML VIAL ONE (09:02)
[2019-07-20] MEDS ORDERED: LORazepam 2 MG/ML VIAL ONE (09:02)
[2019-07-20] MEDS ORDERED: HALOPERIDOL LACTATE 5 MG/ML VIAL ONE (09:02)
[2019-07-20] MEDS ORDERED: DiphenhydrAMINE HCL 50 MG/ML VIAL IM ONE (09:15)
[2019-07-20] MEDS ORDERED: HALOPERIDOL LACTATE 5 MG/ML VIAL IM ONE (09:15)
[2019-07-20] MEDS ORDERED: LORazepam 2 MG/ML VIAL IM ONE (09:15)
[2019-07-20 16:09] VITALS: BP 112/71
[2019-07-20] MEDS: LORazepam 2 MG TABLET PO PRN ×2 (17:15→21:15)
[2019-07-20] MEDS: ZOLPIDEM TARTRATE 10 MG TABLET PO PRN (20:25)
[2019-07-21 01:25] VITALS: BP 138/80
[2019-07-21 01:28] VITALS: BP 111/72
[2019-07-21] MEDS: ChlorproMAZINE HCL 50 MG TABLET PO SCH ×2 (08:49→20:15)
[2019-07-21] MEDS: FLUoxetine HCL 20 MG CAPSULE PO SCH (08:49)
[2019-07-21 10:31] VITALS: BP 130/75
[2019-07-21] MEDS: LORazepam 2 MG TABLET PO PRN ×2 (11:25→20:15)
[2019-07-21] MEDS ORDERED: LORazepam 2 MG/ML VIAL IM ONE (11:30)
[2019-07-21] MEDS ORDERED: DiphenhydrAMINE HCL 50 MG/ML VIAL IM ONE (11:30)
[2019-07-21] MEDS ORDERED: HALOPERIDOL LACTATE 5 MG/ML VIAL IM ONE (11:30)
[2019-07-21 16:41] VITALS: BP 119/82
[2019-07-21] MEDS: ZOLPIDEM TARTRATE 10 MG TABLET PO PRN (20:15)
[2019-07-21] MEDS: ChlorproMAZINE HCL 50 MG TABLET PO PRN (20:15)
[2019-07-22 01:20] VITALS: BP 135/87
[2019-07-22] MEDS: LORazepam 2 MG TABLET PO PRN ×2 (08:05→11:30)
[2019-07-22] MEDS: ChlorproMAZINE HCL 50 MG TABLET PO SCH (08:05)
[2019-07-22] MEDS: FLUoxetine HCL 20 MG CAPSULE PO SCH (08:06)
[2019-07-22] MEDS: ChlorproMAZINE HCL 50 MG TABLET PO PRN ×2 (08:06→11:29)
[2019-07-22 08:11] VITALS: BP 134/83
== END 2019-07-22 13:36 | disposition home or self-care (01) | DRG 751 ==
LOC: EMS 15:50 → B3A 07-19 00:47
DX: F33.2 Major depressive disorder, recurrent severe without psychotic features (principal); R45.851 Suicidal ideations; E03.9 Hypothyroidism, unspecified; Z59.0 Homelessness; F10.10 Alcohol abuse, uncomplicated; F12.90 Cannabis use, unspecified, uncomplicated; F17.200 Nicotine dependence, unspecified, uncomplicated; F90.9 Attention-deficit hyperactivity disorder, unspecified type; K21.9 Gastro-esophageal reflux disease without esophagitis; K59.00 Constipation, unspecified; Z91.5 Personal history of self-harm; F41.9 Anxiety disorder, unspecified; F60.3 Borderline personality disorder
CPT/HCPCS: 83036; 84439; 87081; 90686; G0480; J1200; J1630; J2060

== ENCOUNTER 2019-08-31 19:51 | Emergency (ER) | payer MEDICAID ==
[~2019-08-31] VITALS: Ht 175.3 cm; Wt 68.2 kg
[2019-08-31] MEDS ORDERED: CHOL100018 PO (21:14)
[2019-08-31] MEDS ORDERED: OLAN5TAB2 PO (21:14)
[2019-08-31] MEDS ORDERED: DIVA-78 PO (21:14)
[2019-08-31] MEDS ORDERED: BUSP10TA23 PO (21:14)
[2019-08-31] MEDS ORDERED: QUET300T2 PO (21:14)
[2019-08-31 22:02] LABS: BASOPHILS % (AUTO) 0.5 % (0.0-2.0); EOSINOPHILS % (AUTO) 6.7 % (1.0-6.0); HEMATOCRIT 41.6 % (41-53); HEMOGLOBIN 13.3 g/dL (13.5-17.5); LYMPHOCYTES # (AUTO) 1.8 K/uL (1.0-4.8); LYMPHOCYTES % (AUTO) 31.2 % (22.0-44.0); MEAN CORPUSCULAR HEMOGLOBIN 23.8 pg (26.0-34.0); MEAN CORPUSCULAR VOLUME 74 fL (80-100); MONOCYTES # (AUTO) 0.7 K/uL (0.1-1.0); MONOCYTES % (AUTO) 11.5 % (2.0-9.0); NEUTROPHILS % (AUTO) 50.1 % (40.0-70.0); PLATELET COUNT (AUTO) 122 K/uL (150-450); RED CELL DISTRIBUTION WIDTH 15.6 % (11.5-14.5)
[2019-08-31 22:15] LABS: ANION GAP 7 mmol/L (8-16); CALCIUM, TOTAL 9.2 mg/dL (8.8-10.5); CARBON DIOXIDE 29 mmol/L (22-29); CHLORIDE 103 mmol/L (98-107); CREATININE 1.06 mg/dL (0.60-1.30); GLOMERULAR FILTR. RATE CALC > 60 mL/min (>60); GLUCOSE,RANDOM 85 mg/dL (70-110); POTASSIUM 3.4 mmol/L (3.5-5.1); SODIUM SERUM 139 mmol/L (136-145); UREA NITROGEN, BLOOD 16 mg/dL (7-18)
[2019-08-31] MEDS ORDERED: PERTUSS(ACELL),DIPH,TET VAC/PF 0.5 ML VIAL IM ONE (22:15)
[2019-08-31] MEDS ORDERED: BACITRACIN 0.9 GM PACKET OINTMENT TP ONE (22:15)
[2019-08-31 22:24] LABS: ALANINE AMINOTRANSFERASE 16 U/L (12-78); ALBUMIN 3.9 g/dL (3.4-5.0); ALKALINE PHOSPHATASE 71 U/L (46-116); ASPARTATE AMINOTRANSFERASE 27 U/L (15-37); BILIRUBIN,TOTAL 0.5 mg/dL (0.1-1.0); TOTAL PROTEIN, SERUM 7.8 g/dL (6.4-8.2)
[2019-09-01 01:08] VITALS: BP 142/68
== END 2019-09-01 01:05 | disposition home or self-care (01) ==
LOC: EMS 19:52
DX: R45.1 Restlessness and agitation (principal); F31.9 Bipolar disorder, unspecified; F20.9 Schizophrenia, unspecified; F17.210 Nicotine dependence, cigarettes, uncomplicated; F12.90 Cannabis use, unspecified, uncomplicated; F19.90 Other psychoactive substance use, unspecified, uncomplicated; Z91.018 Allergy to other foods
CPT/HCPCS: 36415; 73130 ×2; 80053; 85025; 99285; 99406; G0480; 90715

== ENCOUNTER 2019-09-07 22:36 | Inpatient (IN) | payer MEDICAID ==
[~2019-09-07] VITALS: Ht 175.3 cm; Wt 77.3 kg
[~2019-09-07 22:36] MED LIST changes: +BUSP10TA23 PO; -CHLO50 PO; +CHOL100018 PO; +DIVA-78 PO; -FLUO20CA30 PO; +OLAN5TAB2 PO; +QUET300T2 PO
[2019-09-07] MEDS ORDERED: DiphenhydrAMINE HCL 50 MG/ML VIAL ONE (23:59)
[2019-09-07] MEDS ORDERED: LORazepam 2 MG/ML VIAL ONE (23:59)
[2019-09-07] MEDS ORDERED: HALOPERIDOL LACTATE 5 MG/ML VIAL ONE (23:59)
[2019-09-08] MEDS ORDERED: LORazepam 2 MG/ML VIAL IM ONE ×3 (00:45→09:30)
[2019-09-08] MEDS ORDERED: HALOPERIDOL LACTATE 5 MG/ML VIAL IM ONE ×2 (00:45)
[2019-09-08] MEDS ORDERED: DiphenhydrAMINE HCL 50 MG/ML VIAL IM ONE ×3 (00:45→09:30)
[2019-09-08] MEDS ORDERED: ZOLPIDEM TARTRATE 10 MG TABLET PO PRN (01:30)
[2019-09-08] MEDS ORDERED: HALOPERIDOL 5 MG TABLET PO PRN (01:30)
[2019-09-08 03:34] LABS: BASOPHILS % (AUTO) 0.7 % (0.0-2.0); EOSINOPHILS % (AUTO) 4.4 % (1.0-6.0); HEMATOCRIT 41.8 % (41-53); HEMOGLOBIN 13.4 g/dL (13.5-17.5); LYMPHOCYTES # (AUTO) 2.4 K/uL (1.0-4.8); LYMPHOCYTES % (AUTO) 40.6 % (22.0-44.0); MEAN CORPUSCULAR HEMOGLOBIN 23.8 pg (26.0-34.0); MEAN CORPUSCULAR HGB CONC 32.1 G/dL (31.0-37.0); MEAN CORPUSCULAR VOLUME 74 fL (80-100); MONOCYTES # (AUTO) 0.5 K/uL (0.1-1.0); MONOCYTES % (AUTO) 8.7 % (2.0-9.0); NEUTROPHILS # (AUTO) 2.7 K/uL (1.8-7.7); NEUTROPHILS % (AUTO) 45.6 % (40.0-70.0); PLATELET COUNT (AUTO) 144 K/uL (150-450); RED BLOOD CELL COUNT(AUTO) 5.64 MIL/uL (4.50-5.90); RED CELL DISTRIBUTION WIDTH 15.4 % (11.5-14.5)
[2019-09-08 03:45] LABS: ANION GAP 7 mmol/L (8-16); CARBON DIOXIDE 28 mmol/L (22-29); CHLORIDE 105 mmol/L (98-107); CREATININE 1.08 mg/dL (0.60-1.30); GLOMERULAR FILTR. RATE CALC > 60 mL/min (>60); GLUCOSE,RANDOM 75 mg/dL (70-110); POTASSIUM 3.9 mmol/L (3.5-5.1); SODIUM SERUM 140 mmol/L (136-145); UREA NITROGEN, BLOOD 19 mg/dL (7-18)
[2019-09-08 03:51] LABS: ALANINE AMINOTRANSFERASE 18 U/L (12-78); ALBUMIN 3.7 g/dL (3.4-5.0); ALKALINE PHOSPHATASE 70 U/L (46-116); ASPARTATE AMINOTRANSFERASE 37 U/L (15-37); BILIRUBIN,TOTAL 0.6 mg/dL (0.1-1.0); TOTAL PROTEIN, SERUM 7.5 g/dL (6.4-8.2); VALPROIC ACID 44 mcg/mL (50-100)
[2019-09-08 08:52] LABS: AMPHET/METH SCREEN,URINE NEGATIVE (NEGATIVE); BARBITURATE SCREEN, URINE NEGATIVE (NEGATIVE); BENZODIAZEPINES SCREEN,URINE NEGATIVE (NEGATIVE); CANNABINOID SCREEN,URINE POSITIVE (NEGATIVE); COCAINE SCREEN,URINE NEGATIVE (NEGATIVE); METHADONE SCREEN, URINE NEGATIVE (NEGATIVE); OPIATE SCREEN,URINE NEGATIVE (NEGATIVE)
[2019-09-08 08:53] LABS: PHENCYCLIDINE SCREEN,URINE NEGATIVE (NEGATIVE)
[2019-09-08] MEDS ORDERED: MAG HYDROX/AL HYDROX/SIMETH ES 30 ML SUSPENSION UDCUP PO PRN (16:15)
[2019-09-08] MEDS ORDERED: CloNIDine HCL 0.1 MG TABLET PO PRN (16:15)
[2019-09-08] MEDS ORDERED: PETROLATUM,WHITE 28 GM JELLY TP PRN (16:15)
[2019-09-08] MEDS ORDERED: LOPERAMIDE HCL 2 MG CAPSULE PO PRN (16:15)
[2019-09-08] MEDS ORDERED: MAGNESIUM HYDROXIDE SUSPENSION 30 ML UDCUP PO PRN (16:15)
[2019-09-08] MEDS ORDERED: ACETAMINOPHEN 325 MG TABLET PO PRN (16:15)
[2019-09-08] MEDS ORDERED: ALBUTEROL SULFATE HFA 90 MCG/PUFF 8 GM INHALER IH PRN (16:15)
[2019-09-08] MEDS ORDERED: DOCUSATE SODIUM 100 MG CAPSULE PO PRN (16:15)
[2019-09-08] MEDS ORDERED: NICOTINE 14 MG/24 HOUR PATCH TD PRN (16:15)
[2019-09-08] MEDS ORDERED: GuaiFENesin/D-METHORPHAN [SUGAR-FREE] 200-20MG/10 ML SYRUP UDCUP PO PRN (16:15)
[2019-09-08] MEDS ORDERED: ONDANSETRON HCL 4 MG TABLET PO PRN (16:15)
[2019-09-08] MEDS: CHOLECALCIFEROL (VIT D3) 1,000 UNITS TABLET PO SCH ×2 (17:00→22:50)
[2019-09-08] MEDS: ChlorproMAZINE HCL 50 MG TABLET PO SCH (20:37)
[2019-09-09 04:36] VITALS: BP 140/99
[2019-09-09] MEDS: LORazepam 2 MG TABLET PO PRN ×4 (04:39→20:35)
[2019-09-09] MEDS: IBUPROFEN 400 MG TABLET PO PRN (04:39)
[2019-09-09 08:02] VITALS: BP 153/89
[2019-09-09] MEDS: DIVALPROEX SODIUM 500 MG ER TABLET PO SCH ×2 (08:36→16:02)
[2019-09-09] MEDS: ChlorproMAZINE HCL 50 MG TABLET PO SCH ×2 (08:36→20:35)
[2019-09-09] MEDS: CHOLECALCIFEROL (VIT D3) 1,000 UNITS TABLET PO SCH ×2 (08:36→16:02)
[2019-09-09] MEDS: FLUoxetine HCL 20 MG CAPSULE PO SCH (08:36)
[2019-09-09 16:14] VITALS: BP 133/67
[2019-09-10] MEDS: IBUPROFEN 400 MG TABLET PO PRN (00:01)
[2019-09-10 00:12] VITALS: BP 140/87
[2019-09-10] MEDS: DIVALPROEX SODIUM 500 MG ER TABLET PO SCH (08:19)
[2019-09-10] MEDS: FLUoxetine HCL 20 MG CAPSULE PO SCH (08:19)
[2019-09-10] MEDS: ChlorproMAZINE HCL 50 MG TABLET PO SCH (08:20)
[2019-09-10] MEDS: CHOLECALCIFEROL (VIT D3) 1,000 UNITS TABLET PO SCH (08:20)
[2019-09-10 08:28] VITALS: BP 151/74
[2019-09-10 08:44] LABS: CHOL/HDL RATIO 2.1 (4.2-7.3); THYROID STIMULATING HORMONE 1.07 uIU/mL (0.36-3.74)
[2019-09-10] MEDS ORDERED: DIVA-78 PO (11:52)
[2019-09-10] MEDS ORDERED: CHLO50 PO (11:52)
[2019-09-10] MEDS ORDERED: OMEG-135 PO (11:54)
== END 2019-09-10 12:23 | disposition home or self-care (01) | DRG 753 ==
LOC: EMS 22:36 → B3A 09-08 08:41
PROVIDERS: ADMIT Psychiatry & Neurology Psychiatry; ATTEND Psychiatry & Neurology Psychiatry
DX: F31.9 Bipolar disorder, unspecified (principal); R45.851 Suicidal ideations; Z78.1 Physical restraint status; F20.9 Schizophrenia, unspecified; F10.10 Alcohol abuse, uncomplicated; E55.9 Vitamin D deficiency, unspecified; D64.9 Anemia, unspecified; F15.90 Other stimulant use, unspecified, uncomplicated; F17.210 Nicotine dependence, cigarettes, uncomplicated; Z91.5 Personal history of self-harm
CPT/HCPCS: 84443; 96372; 99291; G0480; J1200; J1630; J2060; J3230

== ENCOUNTER 2019-11-05 16:10 | Emergency (ER) | payer MEDICAID ==
[~2019-11-05] VITALS: Ht 175.3 cm; Wt 68.2 kg
[~2019-11-05 16:10] MED LIST changes: -BUSP10TA23 PO; +CHLO50 PO; -CHOL100018 PO; -OLAN5TAB2 PO; +OMEG-135 PO; -QUET300T2 PO
[2019-11-05] MEDS ORDERED: IBUPROFEN 600 MG TABLET PO ONE (19:45)
[2019-11-05 21:11] VITALS: BP 125/87
== END 2019-11-05 21:33 | disposition home or self-care (01) ==
LOC: EMS 16:11
DX: S90.822A Blister (nonthermal), left foot, initial encounter (principal); S90.821A Blister (nonthermal), right foot, initial encounter; R03.0 Elevated blood-pressure reading, without diagnosis of hypertension; F31.9 Bipolar disorder, unspecified; F20.9 Schizophrenia, unspecified; F17.210 Nicotine dependence, cigarettes, uncomplicated; F12.90 Cannabis use, unspecified, uncomplicated; F15.90 Other stimulant use, unspecified, uncomplicated; Z79.899 Other long term (current) drug therapy; Z91.018 Allergy to other foods; X58.XXXA Exposure to other specified factors, initial encounter; Y93.01 Activity, walking, marching and hiking; Y92.89 Other specified places as the place of occurrence of the external cause; Y99.8 Other external cause status

== ENCOUNTER 2019-11-17 14:56 | Emergency (ER) | payer MEDICAID ==
[~2019-11-17] VITALS: Ht 175.3 cm; Wt 72.7 kg
[2019-11-17 15:54] VITALS: BP 129/64
[2019-11-17 16:28] LABS: BASOPHILS % (AUTO) 0.4 % (0.0-2.0); EOSINOPHILS % (AUTO) 0.5 % (1.0-6.0); HEMATOCRIT 41.7 % (41-53); HEMOGLOBIN 13.5 g/dL (13.5-17.5); LYMPHOCYTES # (AUTO) 1.3 K/uL (1.0-4.8); LYMPHOCYTES % (AUTO) 17.6 % (22.0-44.0); MEAN CORPUSCULAR HEMOGLOBIN 24.1 pg (26.0-34.0); MEAN CORPUSCULAR HGB CONC 32.4 G/dL (31.0-37.0); MEAN CORPUSCULAR VOLUME 74 fL (80-100); MONOCYTES # (AUTO) 0.5 K/uL (0.1-1.0); MONOCYTES % (AUTO) 6.2 % (2.0-9.0); NEUTROPHILS # (AUTO) 5.5 K/uL (1.8-7.7); NEUTROPHILS % (AUTO) 75.3 % (40.0-70.0); PLATELET COUNT (AUTO) 161 K/uL (150-450); RED BLOOD CELL COUNT(AUTO) 5.61 MIL/uL (4.50-5.90); RED CELL DISTRIBUTION WIDTH 16.1 % (11.5-14.5)
[2019-11-17 16:38] LABS: ANION GAP 9 mmol/L (8-16); CALCIUM, TOTAL 9.4 mg/dL (8.8-10.5); CARBON DIOXIDE 28 mmol/L (22-29); CHLORIDE 106 mmol/L (98-107); CREATININE 0.97 mg/dL (0.60-1.30); GLOMERULAR FILTR. RATE CALC > 60 mL/min (>60); GLUCOSE,RANDOM 110 mg/dL (70-110); POTASSIUM 4.2 mmol/L (3.5-5.1); SODIUM SERUM 143 mmol/L (136-145); UREA NITROGEN, BLOOD 16 mg/dL (7-18)
[2019-11-17 16:43] LABS: AMPHET/METH SCREEN,URINE NEGATIVE (NEGATIVE); BARBITURATE SCREEN, URINE NEGATIVE (NEGATIVE); BENZODIAZEPINES SCREEN,URINE NEGATIVE (NEGATIVE); CANNABINOID SCREEN,URINE POSITIVE (NEGATIVE); COCAINE SCREEN,URINE NEGATIVE (NEGATIVE); METHADONE SCREEN, URINE NEGATIVE (NEGATIVE); OPIATE SCREEN,URINE NEGATIVE (NEGATIVE)
[2019-11-17 16:44] LABS: ALANINE AMINOTRANSFERASE 37 U/L (12-78); ALBUMIN 3.9 g/dL (3.4-5.0); ALKALINE PHOSPHATASE 69 U/L (46-116); ASPARTATE AMINOTRANSFERASE 76 U/L (15-37); BILIRUBIN,TOTAL 0.5 mg/dL (0.1-1.0); TOTAL PROTEIN, SERUM 7.4 g/dL (6.4-8.2)
[2019-11-17 16:59] LABS: PHENCYCLIDINE SCREEN,URINE NEGATIVE (NEGATIVE)
== END 2019-11-17 17:51 | disposition home or self-care (01) ==
LOC: EMS 14:58
DX: F20.9 Schizophrenia, unspecified (principal); F31.9 Bipolar disorder, unspecified; F12.90 Cannabis use, unspecified, uncomplicated; F15.90 Other stimulant use, unspecified, uncomplicated; F17.210 Nicotine dependence, cigarettes, uncomplicated; Z91.018 Allergy to other foods; Z79.899 Other long term (current) drug therapy
CPT/HCPCS: 36415; 80053; 80307; 85025; 99285; G0480

== ENCOUNTER 2019-11-18 16:47 | Inpatient (IN) | payer MEDICAID ==
[~2019-11-18] VITALS: Ht 175.3 cm; Wt 76.2 kg
[2019-11-18 19:52] LABS: BASOPHILS % (AUTO) 0.6 % (0.0-2.0); EOSINOPHILS % (AUTO) 7.4 % (1.0-6.0); HEMATOCRIT 37.6 % (41-53); HEMOGLOBIN 12.1 g/dL (13.5-17.5); LYMPHOCYTES # (AUTO) 2.9 K/uL (1.0-4.8); MEAN CORPUSCULAR HEMOGLOBIN 24.1 pg (26.0-34.0); MEAN CORPUSCULAR HGB CONC 32.3 G/dL (31.0-37.0); MEAN CORPUSCULAR VOLUME 75 fL (80-100); MONOCYTES # (AUTO) 0.4 K/uL (0.1-1.0); NEUTROPHILS # (AUTO) 1.8 K/uL (1.8-7.7); PLATELET COUNT (AUTO) 161 K/uL (150-450); RED BLOOD CELL COUNT(AUTO) 5.04 MIL/uL (4.50-5.90); RED CELL DISTRIBUTION WIDTH 16.3 % (11.5-14.5)
[2019-11-18] MEDS ORDERED: LORazepam 2 MG TABLET ONE (20:08)
[2019-11-18] MEDS ORDERED: DiphenhydrAMINE HCL 50 MG CAPSULE ONE (20:08)
[2019-11-18] MEDS ORDERED: HALOPERIDOL 5 MG TABLET ONE (20:08)
[2019-11-18 20:10] LABS: ANION GAP 3 mmol/L (8-16); CALCIUM, TOTAL 9.4 mg/dL (8.8-10.5); CARBON DIOXIDE 32 mmol/L (22-29); CHLORIDE 107 mmol/L (98-107); CREATININE 1.03 mg/dL (0.60-1.30); GLOMERULAR FILTR. RATE CALC > 60 mL/min (>60); GLUCOSE,RANDOM 104 mg/dL (70-110); POTASSIUM 4.4 mmol/L (3.5-5.1); SODIUM SERUM 142 mmol/L (136-145); UREA NITROGEN, BLOOD 18 mg/dL (7-18)
[2019-11-18 20:15] LABS: ALANINE AMINOTRANSFERASE 37 U/L (12-78); ALBUMIN 3.7 g/dL (3.4-5.0); ALKALINE PHOSPHATASE 85 U/L (46-116); ASPARTATE AMINOTRANSFERASE 53 U/L (15-37); BILIRUBIN,TOTAL 0.3 mg/dL (0.1-1.0)
[2019-11-18] MEDS ORDERED: DiphenhydrAMINE HCL 50 MG CAPSULE PO ONE (20:15)
[2019-11-18] MEDS ORDERED: HALOPERIDOL 5 MG TABLET PO ONE (20:15)
[2019-11-18] MEDS ORDERED: LORazepam 2 MG TABLET PO ONE (20:15)
[2019-11-18 20:39] LABS: AMPHET/METH SCREEN,URINE NEGATIVE (NEGATIVE); BARBITURATE SCREEN, URINE NEGATIVE (NEGATIVE); BENZODIAZEPINES SCREEN,URINE NEGATIVE (NEGATIVE); CANNABINOID SCREEN,URINE POSITIVE (NEGATIVE); COCAINE SCREEN,URINE NEGATIVE (NEGATIVE); METHADONE SCREEN, URINE NEGATIVE (NEGATIVE); OPIATE SCREEN,URINE NEGATIVE (NEGATIVE)
[2019-11-18 20:42] LABS: PHENCYCLIDINE SCREEN,URINE NEGATIVE (NEGATIVE)
[2019-11-18] MEDS ORDERED: ZOLPIDEM TARTRATE 10 MG TABLET PO PRN (22:00)
[2019-11-19 00:39] VITALS: BP 120/90
[2019-11-19] MEDS ORDERED: INFLUENZA VIRUS VACCINE QVS 2019-20 (3YR+)/PF 60 MCG/0.5 ML SYRINGE IM ONE (01:15)
[2019-11-19 08:00] VITALS: BP 117/68
[2019-11-19 08:48] LABS: CHOL/HDL RATIO 2.4 (4.2-7.3)
[2019-11-19] MEDS: LORazepam 2 MG TABLET PO PRN ×2 (12:08→16:56)
[2019-11-19] MEDS: HALOPERIDOL 5 MG TABLET PO PRN ×2 (12:43→16:56)
[2019-11-19 16:00] VITALS: BP 132/76
[2019-11-19] MEDS: DIVALPROEX SODIUM 500 MG ER TABLET PO SCH (16:55)
[2019-11-19] MEDS: ChlorproMAZINE HCL 50 MG TABLET PO SCH (16:55)
[2019-11-19] MEDS ORDERED: LORazepam 2 MG/ML VIAL ONE (19:53)
[2019-11-19] MEDS ORDERED: HALOPERIDOL LACTATE 5 MG/ML VIAL ONE (19:53)
[2019-11-19] MEDS ORDERED: DiphenhydrAMINE HCL 50 MG/ML VIAL ONE (19:54)
[2019-11-19] MEDS ORDERED: DiphenhydrAMINE HCL 50 MG/ML VIAL IM ONE (20:00)
[2019-11-19] MEDS ORDERED: LORazepam 2 MG/ML VIAL IM ONE (20:00)
[2019-11-20 08:28] VITALS: BP 124/69
[2019-11-20] MEDS: DIVALPROEX SODIUM 500 MG ER TABLET PO SCH ×2 (08:30→16:29)
[2019-11-20] MEDS: FLUoxetine HCL 20 MG CAPSULE PO SCH (08:30)
[2019-11-20] MEDS: ChlorproMAZINE HCL 50 MG TABLET PO SCH ×2 (08:31→16:29)
[2019-11-20 16:03] VITALS: BP 135/86
[2019-11-20] MEDS: LORazepam 2 MG TABLET PO PRN (16:29)
[2019-11-21 06:53] VITALS: BP 123/53
[2019-11-21] MEDS: DIVALPROEX SODIUM 500 MG ER TABLET PO SCH ×2 (08:08→16:25)
[2019-11-21] MEDS: FLUoxetine HCL 20 MG CAPSULE PO SCH (08:09)
[2019-11-21] MEDS: ChlorproMAZINE HCL 50 MG TABLET PO SCH ×2 (08:09→16:25)
[2019-11-21] MEDS: LORazepam 2 MG TABLET PO PRN ×3 (08:09→17:46)
[2019-11-21 08:12] VITALS: BP 129/79
[2019-11-21] MEDS: HALOPERIDOL 5 MG TABLET PO PRN ×2 (13:02→17:46)
[2019-11-21 16:10] VITALS: BP 128/70
[2019-11-21] MEDS ORDERED: LORazepam 2 MG/ML VIAL IM ONE (19:15)
[2019-11-21] MEDS ORDERED: DiphenhydrAMINE HCL 50 MG/ML VIAL IM ONE (19:15)
[2019-11-22 02:11] VITALS: BP 112/67
[2019-11-22 08:15] VITALS: BP 117/59
[2019-11-22] MEDS: FLUoxetine HCL 20 MG CAPSULE PO SCH (08:31)
[2019-11-22] MEDS: ChlorproMAZINE HCL 50 MG TABLET PO SCH ×2 (08:31→17:30)
[2019-11-22] MEDS: DIVALPROEX SODIUM 500 MG ER TABLET PO SCH ×2 (08:31→17:30)
[2019-11-22] MEDS: HALOPERIDOL 5 MG TABLET PO PRN (08:32)
[2019-11-22] MEDS: LORazepam 2 MG TABLET PO PRN (08:32)
[2019-11-22 16:19] VITALS: BP 117/80
[2019-11-22] MEDS ORDERED: DiphenhydrAMINE HCL 50 MG/ML VIAL ONE (18:06)
[2019-11-22] MEDS ORDERED: LORazepam 2 MG/ML VIAL IM ONE (18:15)
[2019-11-22] MEDS ORDERED: DiphenhydrAMINE HCL 50 MG/ML VIAL IM ONE (18:15)
[2019-11-22] MEDS ORDERED: DIVALPROEX SODIUM 500 MG ER TABLET PO SCH (21:45)
[2019-11-23 04:03] VITALS: BP 136/74
[2019-11-23] MEDS ORDERED: ACETAMINOPHEN 325 MG TABLET PO PRN (04:30)
[2019-11-23] MEDS: DIVALPROEX SODIUM 500 MG ER TABLET PO SCH ×2 (09:12→16:39)
[2019-11-23] MEDS: ChlorproMAZINE HCL 100 MG TABLET PO SCH ×3 (09:13→16:39)
[2019-11-23] MEDS ORDERED: MAGNESIUM HYDROXIDE SUSPENSION 30 ML UDCUP PO PRN (09:45)
[2019-11-23] MEDS ORDERED: GuaiFENesin/D-METHORPHAN [SUGAR-FREE] 200-20MG/10 ML SYRUP UDCUP PO PRN (09:45)
[2019-11-23] MEDS ORDERED: LOPERAMIDE HCL 2 MG CAPSULE PO PRN (09:45)
[2019-11-23] MEDS ORDERED: ONDANSETRON HCL 4 MG TABLET PO PRN (09:45)
[2019-11-23] MEDS ORDERED: DOCUSATE SODIUM 100 MG CAPSULE PO PRN (09:45)
[2019-11-23] MEDS ORDERED: CloNIDine HCL 0.1 MG TABLET PO PRN (09:45)
[2019-11-23] MEDS ORDERED: ALBUTEROL SULFATE HFA 90 MCG/PUFF 8 GM INHALER IH PRN (09:45)
[2019-11-23] MEDS ORDERED: MAG HYDROX/AL HYDROX/SIMETH ES 30 ML SUSPENSION UDCUP PO PRN (09:45)
[2019-11-23] MEDS ORDERED: PETROLATUM,WHITE 28 GM JELLY TP PRN (09:45)
[2019-11-23] MEDS ORDERED: IBUPROFEN 400 MG TABLET PO PRN (09:45)
[2019-11-23 16:13] VITALS: BP 128/67
[2019-11-23] MEDS: HALOPERIDOL 5 MG TABLET PO PRN (16:39)
[2019-11-23] MEDS: LORazepam 2 MG TABLET PO PRN (16:39)
[2019-11-23] MEDS ORDERED: ChlorproMAZINE HCL 100 MG TABLET PO SCH (21:00)
[2019-11-24 08:00] VITALS: BP 110/88
[2019-11-24] MEDS: ChlorproMAZINE HCL 100 MG TABLET PO SCH ×3 (08:54→16:42)
[2019-11-24] MEDS: SULFAMETHOX/TRIMETH DS 800-160 MG/TABLET PO SCH ×2 (08:54→16:42)
[2019-11-24] MEDS: CEPHALEXIN MONOHYDRATE 500 MG CAPSULE PO SCH ×3 (08:54→16:42)
[2019-11-24] MEDS: DIVALPROEX SODIUM 500 MG ER TABLET PO SCH ×2 (08:54→16:42)
[2019-11-24 16:00] VITALS: BP 138/89
[2019-11-24] MEDS: LORazepam 2 MG TABLET PO PRN (16:43)
[2019-11-24] MEDS ORDERED: ChlorproMAZINE HCL 100 MG TABLET PO SCH (21:00)
[2019-11-25 00:20] VITALS: BP 134/80
[2019-11-25 08:00] VITALS: BP 126/67
[2019-11-25] MEDS: NALTREXONE HCL 50 MG TABLET PO SCH (08:37)
[2019-11-25] MEDS: SULFAMETHOX/TRIMETH DS 800-160 MG/TABLET PO SCH ×2 (08:37→18:04)
[2019-11-25] MEDS: DIVALPROEX SODIUM 500 MG ER TABLET PO SCH ×2 (08:37→16:51)
[2019-11-25] MEDS: CEPHALEXIN MONOHYDRATE 500 MG CAPSULE PO SCH ×3 (08:37→16:51)
[2019-11-25] MEDS: ChlorproMAZINE HCL 100 MG TABLET PO SCH ×3 (08:40→16:52)
[2019-11-25] MEDS ORDERED: LORazepam 2 MG/ML VIAL IM ONE (16:00)
[2019-11-25] MEDS ORDERED: HALOPERIDOL LACTATE 5 MG/ML VIAL IM ONE (16:00)
[2019-11-25] MEDS ORDERED: DiphenhydrAMINE HCL 50 MG/ML VIAL IM ONE (16:00)
[2019-11-25 16:06] VITALS: BP 112/67
[2019-11-25] MEDS: LORazepam 2 MG TABLET PO PRN (16:54)
[2019-11-25] MEDS ORDERED: DIVA500T52 PO (18:16)
[2019-11-25] MEDS ORDERED: NALT50TA PO (18:16)
[2019-11-25] MEDS ORDERED: CHLO100T23 PO ×2 (18:16)
[2019-11-25] MEDS ORDERED: ChlorproMAZINE HCL 100 MG TABLET PO SCH (21:00)
[2019-11-26 00:29] VITALS: BP 131/66
[2019-11-26] MEDS ORDERED: SULF1TAB42 PO (08:06)
[2019-11-26] MEDS ORDERED: CEPH-582 PO (08:07)
[2019-11-26 08:13] VITALS: BP 124/73
[2019-11-26] MEDS: NALTREXONE HCL 50 MG TABLET PO SCH (08:51)
[2019-11-26] MEDS: SULFAMETHOX/TRIMETH DS 800-160 MG/TABLET PO SCH (08:52)
[2019-11-26] MEDS: CEPHALEXIN MONOHYDRATE 500 MG CAPSULE PO SCH (08:53)
[2019-11-26] MEDS: DIVALPROEX SODIUM 500 MG ER TABLET PO SCH (08:54)
[2019-11-26] MEDS ORDERED: THIAMINE HCL 100 MG TABLET PO SCH (09:00)
[2019-11-26] MEDS ORDERED: MULTIVITAMINS WITH MINERALS, THERAPEUTIC TABLET PO SCH (09:00)
[2019-11-26] MEDS ORDERED: FOLIC ACID 1 MG TABLET PO SCH (09:00)
[2019-11-26] MEDS ORDERED: ChlorproMAZINE HCL 100 MG TABLET PO SCH (09:00)
== END 2019-11-26 10:30 | disposition home or self-care (01) | DRG 751 ==
LOC: EMS 16:49 → B3A 22:51
PROVIDERS: ADMIT Psychiatry & Neurology Psychiatry; ATTEND Psychiatry & Neurology Psychiatry
DX: F33.2 Major depressive disorder, recurrent severe without psychotic features (principal); R45.851 Suicidal ideations; R45.850 Homicidal ideations; F60.3 Borderline personality disorder; R45.87 Impulsiveness; D64.9 Anemia, unspecified; F10.10 Alcohol abuse, uncomplicated; F12.90 Cannabis use, unspecified, uncomplicated; F17.210 Nicotine dependence, cigarettes, uncomplicated; Z79.899 Other long term (current) drug therapy; Z91.19 Patient's noncompliance with other medical treatment and regimen
CPT/HCPCS: G0480; J1200; J1630; J2060; J3230

== ENCOUNTER 2019-12-03 03:49 | Inpatient (IN) | payer MEDICAID ==
[~2019-12-03] VITALS: Ht 175.3 cm; Wt 71.7 kg
[~2019-12-03 03:49] MED LIST changes: +CEPH-582 PO; +CHLO100T23 PO; -CHLO50 PO; -DIVA-78 PO; +DIVA500T52 PO; +NALT50TA PO; -OMEG-135 PO; +SULF1TAB42 PO
[2019-12-03 04:31] LABS: BASOPHILS % (AUTO) 0.8 % (0.0-2.0); HEMATOCRIT 37.3 % (41-53); HEMOGLOBIN 11.9 g/dL (13.5-17.5); LYMPHOCYTES # (AUTO) 2.5 K/uL (1.0-4.8); LYMPHOCYTES % (AUTO) 48.8 % (22.0-44.0); MEAN CORPUSCULAR HEMOGLOBIN 23.9 pg (26.0-34.0); MEAN CORPUSCULAR VOLUME 75 fL (80-100); MONOCYTES # (AUTO) 0.7 K/uL (0.1-1.0); MONOCYTES % (AUTO) 12.9 % (2.0-9.0); NEUTROPHILS # (AUTO) 1.3 K/uL (1.8-7.7); NEUTROPHILS % (AUTO) 24.5 % (40.0-70.0); PLATELET COUNT (AUTO) 200 K/uL (150-450); RED BLOOD CELL COUNT(AUTO) 4.99 MIL/uL (4.50-5.90); RED CELL DISTRIBUTION WIDTH 15.7 % (11.5-14.5)
[2019-12-03 04:33] LABS: ANION GAP 5 mmol/L (8-16); CALCIUM, TOTAL 8.9 mg/dL (8.8-10.5); CARBON DIOXIDE 29 mmol/L (22-29); CHLORIDE 106 mmol/L (98-107); GLOMERULAR FILTR. RATE CALC > 60 mL/min (>60); GLUCOSE,RANDOM 85 mg/dL (70-110); POTASSIUM 3.6 mmol/L (3.5-5.1); SODIUM SERUM 140 mmol/L (136-145); UREA NITROGEN, BLOOD 13 mg/dL (7-18)
[2019-12-03 04:40] LABS: ALANINE AMINOTRANSFERASE 32 U/L (12-78); ALBUMIN 3.3 g/dL (3.4-5.0); ALKALINE PHOSPHATASE 78 U/L (46-116); ASPARTATE AMINOTRANSFERASE 25 U/L (15-37); BILIRUBIN,TOTAL 0.1 mg/dL (0.1-1.0); TOTAL PROTEIN, SERUM 6.8 g/dL (6.4-8.2)
[2019-12-03 04:48] LABS: VALPROIC ACID < 3 mcg/mL (50-100)
[2019-12-03 05:45] LABS: AMPHET/METH SCREEN,URINE NEGATIVE (NEGATIVE); BARBITURATE SCREEN, URINE NEGATIVE (NEGATIVE); BENZODIAZEPINES SCREEN,URINE NEGATIVE (NEGATIVE); CANNABINOID SCREEN,URINE POSITIVE (NEGATIVE); COCAINE SCREEN,URINE NEGATIVE (NEGATIVE); METHADONE SCREEN, URINE NEGATIVE (NEGATIVE); OPIATE SCREEN,URINE NEGATIVE (NEGATIVE)
[2019-12-03 05:46] LABS: PHENCYCLIDINE SCREEN,URINE NEGATIVE (NEGATIVE)
[2019-12-03] MEDS ORDERED: ZOLPIDEM TARTRATE 10 MG TABLET PO PRN (06:45)
[2019-12-03] MEDS ORDERED: HALOPERIDOL 5 MG TABLET PO PRN (06:45)
[2019-12-03] MEDS ORDERED: PETROLATUM,WHITE 28 GM JELLY TP PRN (08:15)
[2019-12-03] MEDS ORDERED: DOCUSATE SODIUM 100 MG CAPSULE PO PRN (08:15)
[2019-12-03] MEDS ORDERED: BENZOCAINE/MENTHOL LOZENGE MM PRN (08:15)
[2019-12-03] MEDS ORDERED: ALBUTEROL SULFATE HFA 90 MCG/PUFF 8 GM INHALER IH PRN (08:15)
[2019-12-03] MEDS ORDERED: MAG HYDROX/AL HYDROX/SIMETH ES 30 ML SUSPENSION UDCUP PO PRN (08:15)
[2019-12-03] MEDS ORDERED: OMEPRAZOLE 20 MG CAPSULE PO PRN (08:15)
[2019-12-03] MEDS ORDERED: BACITRACIN 28.4 GM OINTMENT TP PRN (08:15)
[2019-12-03] MEDS ORDERED: ONDANSETRON HCL 4 MG TABLET PO PRN (08:15)
[2019-12-03] MEDS ORDERED: LOPERAMIDE HCL 2 MG CAPSULE PO PRN (08:15)
[2019-12-03] MEDS ORDERED: IBUPROFEN 600 MG TABLET PO PRN (08:15)
[2019-12-03] MEDS ORDERED: CloNIDine HCL 0.1 MG TABLET PO PRN (08:15)
[2019-12-03] MEDS ORDERED: ACETAMINOPHEN 325 MG TABLET PO PRN (08:15)
[2019-12-03] MEDS ORDERED: MAGNESIUM HYDROXIDE SUSPENSION 30 ML UDCUP PO PRN (08:15)
[2019-12-03] MEDS ORDERED: INFLUENZA VIRUS VACCINE QVS 2019-20 (3YR+)/PF 60 MCG/0.5 ML SYRINGE IM ONE (09:45)
[2019-12-03 10:26] VITALS: BP 123/83
[2019-12-03] MEDS: LORazepam 2 MG TABLET PO PRN (12:31)
[2019-12-03] MEDS: QUEtiapine FUMARATE 100 MG TABLET PO SCH (13:46)
[2019-12-03 16:07] VITALS: BP 113/76
[2019-12-03] MEDS: DIVALPROEX SODIUM 500 MG DR TABLET PO SCH (16:23)
[2019-12-03] MEDS ORDERED: QUEtiapine FUMARATE 200 MG TABLET PO SCH (21:00)
[2019-12-04 00:29] VITALS: BP 115/62
[2019-12-04] MEDS: LORazepam 2 MG TABLET PO PRN ×2 (01:05→17:40)
[2019-12-04 08:12] LABS: CHOL/HDL RATIO 2.7 (4.2-7.3)
[2019-12-04] MEDS: QUEtiapine FUMARATE 100 MG TABLET PO SCH (08:35)
[2019-12-04] MEDS: DIVALPROEX SODIUM 500 MG DR TABLET PO SCH ×2 (08:35→16:35)
[2019-12-04 08:49] VITALS: BP 130/88
[2019-12-04] MEDS: ChlorproMAZINE HCL 100 MG TABLET PO SCH ×3 (13:20→20:33)
[2019-12-04 16:05] VITALS: BP 129/77
[2019-12-05 00:29] VITALS: BP 127/79
[2019-12-05] MEDS: DIVALPROEX SODIUM 500 MG DR TABLET PO SCH ×2 (08:36→17:11)
[2019-12-05] MEDS: ChlorproMAZINE HCL 100 MG TABLET PO SCH ×4 (08:36→20:22)
[2019-12-05 08:46] VITALS: BP 135/71
[2019-12-05 16:32] VITALS: BP 107/69
[2019-12-05] MEDS: LORazepam 2 MG TABLET PO PRN (17:55)
[2019-12-06 01:07] VITALS: BP 124/61
[2019-12-06] MEDS: DIVALPROEX SODIUM 500 MG DR TABLET PO SCH ×2 (08:48→16:50)
[2019-12-06] MEDS: ChlorproMAZINE HCL 100 MG TABLET PO SCH ×4 (08:48→20:20)
[2019-12-06] MEDS: LORazepam 2 MG TABLET PO PRN ×2 (10:21→18:05)
[2019-12-06 16:13] VITALS: BP 133/83
[2019-12-07 00:34] VITALS: BP 122/75
[2019-12-07] MEDS: ChlorproMAZINE HCL 100 MG TABLET PO SCH ×4 (08:13→22:51)
[2019-12-07] MEDS: DIVALPROEX SODIUM 500 MG DR TABLET PO SCH ×2 (08:13→17:18)
[2019-12-07 08:31] VITALS: BP 119/74
[2019-12-07 14:11] VITALS: BP 120/78
[2019-12-07 16:24] VITALS: BP 137/88
[2019-12-07] MEDS: LORazepam 2 MG TABLET PO PRN (18:45)
[2019-12-08 00:23] VITALS: BP 139/80
[2019-12-08] MEDS ORDERED: MULTIVITAMINS WITH IRON TABLET PO SCH (07:30)
[2019-12-08 08:04] VITALS: BP 131/66
[2019-12-08] MEDS: DIVALPROEX SODIUM 500 MG DR TABLET PO SCH (08:09)
[2019-12-08] MEDS: ChlorproMAZINE HCL 100 MG TABLET PO SCH (08:09)
== END 2019-12-08 12:03 | disposition home or self-care (01) | DRG 750 ==
LOC: EMS 03:49 → B2S 07:23
PROVIDERS: ADMIT Psychiatry & Neurology Psychiatry; ATTEND Psychiatry & Neurology Psychiatry
DX: F25.1 Schizoaffective disorder, depressive type (principal); F33.2 Major depressive disorder, recurrent severe without psychotic features; F25.9 Schizoaffective disorder, unspecified; D64.9 Anemia, unspecified; F12.90 Cannabis use, unspecified, uncomplicated; F41.9 Anxiety disorder, unspecified; K59.00 Constipation, unspecified; G47.00 Insomnia, unspecified; L03.317 Cellulitis of buttock; F90.9 Attention-deficit hyperactivity disorder, unspecified type; F17.210 Nicotine dependence, cigarettes, uncomplicated; Z91.14 Patient's other noncompliance with medication regimen; Z28.21 Immunization not carried out because of patient refusal
CPT/HCPCS: 87081; 90686; G0480

== ENCOUNTER 2020-07-16 22:02 | Emergency (ER) | payer MEDICAID ==
[~2020-07-16] VITALS: Ht 170.2 cm; Wt 68.2 kg
[~2020-07-16 22:02] MED LIST changes: -CEPH-582 PO; +DIVA-80 PO; -DIVA500T52 PO; -NALT50TA PO; -SULF1TAB42 PO
[2020-07-16 23:50] LABS: BASOPHILS % (AUTO) 0.6 % (0.0-2.0); EOSINOPHILS % (AUTO) 6.7 % (1.0-6.0); HEMATOCRIT 40.9 % (41-53); HEMOGLOBIN 13.3 g/dL (13.5-17.5); LYMPHOCYTES # (AUTO) 2.3 K/uL (1.0-4.8); LYMPHOCYTES % (AUTO) 36.4 % (22.0-44.0); MEAN CORPUSCULAR HEMOGLOBIN 23.5 pg (26.0-34.0); MEAN CORPUSCULAR HGB CONC 32.4 G/dL (31.0-37.0); MEAN CORPUSCULAR VOLUME 73 fL (80-100); MONOCYTES # (AUTO) 0.6 K/uL (0.1-1.0); MONOCYTES % (AUTO) 9.6 % (2.0-9.0); NEUTROPHILS # (AUTO) 2.9 K/uL (1.8-7.7); NEUTROPHILS % (AUTO) 46.7 % (40.0-70.0); PLATELET COUNT (AUTO) 212 K/uL (150-450); RED BLOOD CELL COUNT(AUTO) 5.65 MIL/uL (4.50-5.90); RED CELL DISTRIBUTION WIDTH 15.1 % (11.5-14.5)
[2020-07-17] LABS: ANION GAP 7 mmol/L (8-16); CALCIUM, TOTAL 9.8 mg/dL (8.8-10.5); CARBON DIOXIDE 31 mmol/L (22-29); CHLORIDE 98 mmol/L (98-107); CREATININE 1.01 mg/dL (0.60-1.30); GLOMERULAR FILTR. RATE CALC > 60 mL/min (>60); GLUCOSE,RANDOM 86 mg/dL (70-110); POTASSIUM 3.6 mmol/L (3.5-5.1); SODIUM SERUM 136 mmol/L (136-145); UREA NITROGEN, BLOOD 30 mg/dL (7-18)
[2020-07-17 00:06] LABS: ALANINE AMINOTRANSFERASE 31 U/L (12-78); ALBUMIN 4.5 g/dL (3.4-5.0); ALKALINE PHOSPHATASE 93 U/L (46-116); ASPARTATE AMINOTRANSFERASE 53 U/L (15-37); BILIRUBIN,TOTAL 1.5 mg/dL (0.1-1.0); TOTAL PROTEIN, SERUM 8.2 g/dL (6.4-8.2)
[2020-07-17 04:50] VITALS: BP 120/81
== END 2020-07-17 05:35 | disposition home or self-care (01) ==
LOC: EMS 22:04
DX: R45.851 Suicidal ideations (principal); F31.9 Bipolar disorder, unspecified; F20.9 Schizophrenia, unspecified; F17.210 Nicotine dependence, cigarettes, uncomplicated; Z91.018 Allergy to other foods
CPT/HCPCS: 36415; 80053; 85025; 99284; G0480

== ENCOUNTER 2022-02-19 06:33 | Inpatient (IN) | payer MEDICAID ==
[~2022-02-19] VITALS: Ht 175.3 cm; Wt 70.3 kg
[2022-02-19] MEDS ORDERED: HALOPERIDOL 5 MG TABLET PO PRN (08:30)
[2022-02-19 10:45] VITALS: BP 132/78
[2022-02-19] MEDS ORDERED: NICOTINE 14 MG/24 HOUR PATCH TD PRN (15:00)
[2022-02-19] MEDS ORDERED: PROMETHAZINE HCL 25 MG TABLET PO PRN (15:00)
[2022-02-19] MEDS ORDERED: MAGNESIUM HYDROXIDE SUSPENSION 30 ML UDCUP PO PRN ×2 (15:00)
[2022-02-19] MEDS ORDERED: PETROLATUM,WHITE 28 GM JELLY TP PRN (15:00)
[2022-02-19] MEDS ORDERED: CloNIDine HCL 0.1 MG TABLET PO PRN (15:00)
[2022-02-19] MEDS ORDERED: ACETAMINOPHEN 325 MG TABLET PO PRN ×2 (15:00)
[2022-02-19] MEDS ORDERED: LOPERAMIDE HCL 2 MG CAPSULE PO PRN (15:00)
[2022-02-19] MEDS ORDERED: MAG HYDROX/AL HYDROX/SIMETH ES 30 ML SUSPENSION UDCUP PO PRN ×2 (15:00)
[2022-02-19] MEDS ORDERED: TUBERCULIN, PURIFIED PROTEIN DERIVATIVE 5 TU/0.1 ML SYRINGE ID ONE (15:00)
[2022-02-19] MEDS ORDERED: GuaiFENesin/D-METHORPHAN [SUGAR-FREE] 200-20MG/10 ML SYRUP UDCUP PO PRN ×2 (15:00)
[2022-02-19] MEDS ORDERED: DOCUSATE SODIUM 100 MG CAPSULE PO PRN (15:00)
[2022-02-19] MEDS ORDERED: ONDANSETRON HCL 4 MG TABLET PO PRN (15:00)
[2022-02-19] MEDS ORDERED: IBUPROFEN 400 MG TABLET PO PRN (15:00)
[2022-02-19] MEDS ORDERED: ALBUTEROL SULFATE HFA 90 MCG/PUFF 8 GM INHALER IH PRN (15:00)
[2022-02-19] MEDS ORDERED: HydrOXYzine PAMOATE 50 MG CAPSULE PO PRN (15:00)
[2022-02-19 16:08] VITALS: BP 128/63
[2022-02-19] MEDS: BACITRACIN 28 GM OINTMENT TP SCH (18:49)
[2022-02-19] MEDS: THIAMINE 100 MG TABLET PO SCH (18:49)
[2022-02-19] MEDS: OLANZapine 5 MG RAPDIS TABLET PO SCH (20:27)
[2022-02-19] MEDS: MELATONIN 5 MG TABLET PO SCH (20:27)
[2022-02-20 04:15] VITALS: BP 129/87
[2022-02-20 08:16] VITALS: BP 128/76
[2022-02-20] MEDS: MULTIVITAMINS WITH MINERALS, THERAPEUTIC TABLET PO SCH (08:34)
[2022-02-20] MEDS: NALTREXONE HCL 50 MG TABLET PO SCH (08:34)
[2022-02-20] MEDS: FOLIC ACID 1 MG TABLET PO SCH (08:34)
[2022-02-20] MEDS: OMEGA-3/DHA/EPA/FISH OIL 1,000 MG CAPSULE PO SCH (08:34)
[2022-02-20] MEDS: THIAMINE 100 MG TABLET PO SCH ×2 (08:34→16:38)
[2022-02-20] MEDS: FLUoxetine HCL 20 MG CAPSULE PO SCH (08:34)
[2022-02-20] MEDS: LORazepam 2 MG TABLET PO PRN (08:34)
[2022-02-20] MEDS: BACITRACIN 28 GM OINTMENT TP SCH ×2 (08:35→16:38)
[2022-02-20] MEDS ORDERED: PALIPERIDONE PALMITATE 234 MG/1.5 ML SYRINGE IM ONE (14:00)
[2022-02-20 16:13] VITALS: BP 121/62
[2022-02-20] MEDS: MELATONIN 5 MG TABLET PO SCH (20:27)
[2022-02-20] MEDS: OLANZapine 5 MG RAPDIS TABLET PO SCH (20:27)
[2022-02-21 06:17] VITALS: BP 127/59
[2022-02-21] MEDS: MULTIVITAMINS WITH MINERALS, THERAPEUTIC TABLET PO SCH (08:04)
[2022-02-21] MEDS: FOLIC ACID 1 MG TABLET PO SCH (08:04)
[2022-02-21] MEDS: NALTREXONE HCL 50 MG TABLET PO SCH (08:05)
[2022-02-21] MEDS: FLUoxetine HCL 20 MG CAPSULE PO SCH (08:05)
[2022-02-21] MEDS: THIAMINE 100 MG TABLET PO SCH ×2 (08:05→17:30)
[2022-02-21] MEDS: OMEGA-3/DHA/EPA/FISH OIL 1,000 MG CAPSULE PO SCH (08:05)
[2022-02-21] MEDS: BACITRACIN 28 GM OINTMENT TP SCH ×2 (08:06→17:29)
[2022-02-21 08:20] VITALS: BP 108/69
[2022-02-21 16:15] VITALS: BP 113/70
[2022-02-21] MEDS: LORazepam 2 MG TABLET PO PRN (17:30)
[2022-02-21] MEDS: OLANZapine 5 MG RAPDIS TABLET PO PRN (17:30)
[2022-02-21] MEDS: OLANZapine 10 MG RAPDIS TABLET PO SCH (20:01)
[2022-02-21] MEDS: MELATONIN 5 MG TABLET PO SCH (20:01)
[2022-02-21] MEDS: ZOLPIDEM TARTRATE 10 MG TABLET PO PRN (20:28)
[2022-02-22 04:14] VITALS: BP 141/90
[2022-02-22 08:41] VITALS: BP 132/85
[2022-02-22] MEDS: FLUoxetine HCL 20 MG CAPSULE PO SCH (08:42)
[2022-02-22] MEDS: NALTREXONE HCL 50 MG TABLET PO SCH (08:42)
[2022-02-22] MEDS: MULTIVITAMINS WITH MINERALS, THERAPEUTIC TABLET PO SCH (08:42)
[2022-02-22] MEDS: OMEGA-3/DHA/EPA/FISH OIL 1,000 MG CAPSULE PO SCH (08:42)
[2022-02-22] MEDS: THIAMINE 100 MG TABLET PO SCH ×2 (08:43→17:06)
[2022-02-22] MEDS: FOLIC ACID 1 MG TABLET PO SCH (08:43)
[2022-02-22] MEDS: LORazepam 2 MG TABLET PO PRN ×2 (08:43→17:06)
[2022-02-22] MEDS: BACITRACIN 28 GM OINTMENT TP SCH ×2 (08:50→17:15)
[2022-02-22 16:08] VITALS: BP 104/67
[2022-02-22] MEDS: MELATONIN 5 MG TABLET PO SCH (20:31)
[2022-02-22] MEDS: OLANZapine 10 MG RAPDIS TABLET PO SCH (20:31)
[2022-02-23 01:31] VITALS: BP 149/84
[2022-02-23 08:15] VITALS: BP 122/68
[2022-02-23] MEDS: FOLIC ACID 1 MG TABLET PO SCH (08:28)
[2022-02-23] MEDS: FLUoxetine HCL 20 MG CAPSULE PO SCH (08:28)
[2022-02-23] MEDS: THIAMINE 100 MG TABLET PO SCH ×2 (08:28→17:00)
[2022-02-23] MEDS: MULTIVITAMINS WITH MINERALS, THERAPEUTIC TABLET PO SCH (08:28)
[2022-02-23] MEDS: OMEGA-3/DHA/EPA/FISH OIL 1,000 MG CAPSULE PO SCH (08:28)
[2022-02-23] MEDS: BACITRACIN 28 GM OINTMENT TP SCH ×2 (08:51→17:00)
[2022-02-23] MEDS: NALTREXONE HCL 50 MG TABLET PO SCH (09:12)
[2022-02-23 16:06] VITALS: BP 128/75
[2022-02-23] MEDS: MELATONIN 5 MG TABLET PO SCH (20:43)
[2022-02-23] MEDS: DIVALPROEX SODIUM 500 MG ER TABLET PO SCH (20:43)
[2022-02-23] MEDS: OLANZapine 10 MG RAPDIS TABLET PO SCH (20:44)
[2022-02-24 04:47] VITALS: BP 125/82
[2022-02-24] MEDS: OMEGA-3/DHA/EPA/FISH OIL 1,000 MG CAPSULE PO SCH (08:11)
[2022-02-24] MEDS: NALTREXONE HCL 50 MG TABLET PO SCH (08:11)
[2022-02-24] MEDS: THIAMINE 100 MG TABLET PO SCH ×2 (08:11→16:30)
[2022-02-24] MEDS: MULTIVITAMINS WITH MINERALS, THERAPEUTIC TABLET PO SCH (08:11)
[2022-02-24] MEDS: FLUoxetine HCL 20 MG CAPSULE PO SCH (08:11)
[2022-02-24] MEDS: BACITRACIN 28 GM OINTMENT TP SCH ×2 (08:11→16:30)
[2022-02-24] MEDS: FOLIC ACID 1 MG TABLET PO SCH (08:11)
[2022-02-24 08:35] VITALS: BP 96/63
[2022-02-24] MEDS ORDERED: PALIPERIDONE PALMITATE 156 MG/ML SYRINGE IM ONE (09:00)
[2022-02-24 16:06] VITALS: BP 105/62
[2022-02-24] MEDS: OLANZapine 10 MG RAPDIS TABLET PO SCH (21:04)
[2022-02-24] MEDS: MELATONIN 5 MG TABLET PO SCH (21:04)
[2022-02-24] MEDS: DIVALPROEX SODIUM 500 MG ER TABLET PO SCH (21:04)
[2022-02-25 03:58] VITALS: BP 100/67
[2022-02-25 08:33] VITALS: BP 120/70
[2022-02-25] MEDS: FOLIC ACID 1 MG TABLET PO SCH (09:01)
[2022-02-25] MEDS: OMEGA-3/DHA/EPA/FISH OIL 1,000 MG CAPSULE PO SCH (09:01)
[2022-02-25] MEDS: FLUoxetine HCL 20 MG CAPSULE PO SCH (09:01)
[2022-02-25] MEDS: NALTREXONE HCL 50 MG TABLET PO SCH (09:01)
[2022-02-25] MEDS: THIAMINE 100 MG TABLET PO SCH ×2 (09:01→16:36)
[2022-02-25] MEDS: MULTIVITAMINS WITH MINERALS, THERAPEUTIC TABLET PO SCH (09:01)
[2022-02-25] MEDS: BACITRACIN 28 GM OINTMENT TP SCH ×2 (09:02→16:36)
[2022-02-25 16:10] VITALS: BP 113/74
[2022-02-25] MEDS: DIVALPROEX SODIUM 500 MG ER TABLET PO SCH (20:27)
[2022-02-25] MEDS: MELATONIN 5 MG TABLET PO SCH (20:27)
[2022-02-25] MEDS: OLANZapine 10 MG RAPDIS TABLET PO SCH (20:27)
[2022-02-26 05:13] VITALS: BP 119/85
[2022-02-26] MEDS: BACITRACIN 28 GM OINTMENT TP SCH ×2 (08:19→17:06)
[2022-02-26] MEDS: NALTREXONE HCL 50 MG TABLET PO SCH (08:19)
[2022-02-26] MEDS: THIAMINE 100 MG TABLET PO SCH ×2 (08:19→16:45)
[2022-02-26] MEDS: FOLIC ACID 1 MG TABLET PO SCH (08:20)
[2022-02-26] MEDS: MULTIVITAMINS WITH MINERALS, THERAPEUTIC TABLET PO SCH (08:20)
[2022-02-26] MEDS: LORazepam 2 MG TABLET PO PRN ×2 (08:20→22:29)
[2022-02-26 08:26] VITALS: BP 105/60
[2022-02-26] MEDS: OMEGA-3/DHA/EPA/FISH OIL 1,000 MG CAPSULE PO SCH (09:03)
[2022-02-26] MEDS: FLUoxetine HCL 20 MG CAPSULE PO SCH (09:03)
[2022-02-26 09:12] LABS: GLUCOMETER DEV NAME(LOC) POC.BV
[2022-02-26 16:14] VITALS: BP 106/61
[2022-02-26] MEDS: MELATONIN 5 MG TABLET PO SCH (20:18)
[2022-02-26] MEDS: OLANZapine 10 MG RAPDIS TABLET PO SCH (20:18)
[2022-02-26] MEDS: DIVALPROEX SODIUM 500 MG ER TABLET PO SCH (20:18)
[2022-02-26] MEDS: ZOLPIDEM TARTRATE 10 MG TABLET PO PRN (20:19)
[2022-02-26] MEDS: OLANZapine 5 MG RAPDIS TABLET PO PRN (22:28)
[2022-02-27 01:24] VITALS: BP 119/79
[2022-02-27] MEDS: FLUoxetine HCL 20 MG CAPSULE PO SCH (08:35)
[2022-02-27] MEDS: NALTREXONE HCL 50 MG TABLET PO SCH (08:35)
[2022-02-27] MEDS: MULTIVITAMINS WITH MINERALS, THERAPEUTIC TABLET PO SCH (08:35)
[2022-02-27] MEDS: THIAMINE 100 MG TABLET PO SCH ×2 (08:35→16:21)
[2022-02-27] MEDS: FOLIC ACID 1 MG TABLET PO SCH (08:35)
[2022-02-27] MEDS: OMEGA-3/DHA/EPA/FISH OIL 1,000 MG CAPSULE PO SCH (08:35)
[2022-02-27] MEDS: BACITRACIN 28 GM OINTMENT TP SCH ×2 (08:36→16:20)
[2022-02-27 16:12] VITALS: BP 111/63
[2022-02-27] MEDS: LORazepam 2 MG TABLET PO PRN (16:21)
[2022-02-27] MEDS: OLANZapine 10 MG RAPDIS TABLET PO SCH (20:14)
[2022-02-27] MEDS: DIVALPROEX SODIUM 500 MG ER TABLET PO SCH (20:14)
[2022-02-27] MEDS: MELATONIN 5 MG TABLET PO SCH (20:14)
[2022-02-27] MEDS: ZOLPIDEM TARTRATE 10 MG TABLET PO PRN (20:14)
[2022-02-28 00:40] VITALS: BP 118/72
[2022-02-28] MEDS: FLUoxetine HCL 20 MG CAPSULE PO SCH (08:14)
[2022-02-28] MEDS: THIAMINE 100 MG TABLET PO SCH ×2 (08:14→17:20)
[2022-02-28] MEDS: FOLIC ACID 1 MG TABLET PO SCH (08:14)
[2022-02-28] MEDS: NALTREXONE HCL 50 MG TABLET PO SCH (08:14)
[2022-02-28] MEDS: MULTIVITAMINS WITH MINERALS, THERAPEUTIC TABLET PO SCH (08:14)
[2022-02-28] MEDS: BACITRACIN 28 GM OINTMENT TP SCH ×2 (08:14→17:24)
[2022-02-28] MEDS: OMEGA-3/DHA/EPA/FISH OIL 1,000 MG CAPSULE PO SCH (08:14)
[2022-02-28 16:13] VITALS: BP 126/90
[2022-02-28] MEDS: LORazepam 2 MG TABLET PO PRN (17:20)
[2022-02-28] MEDS: MELATONIN 5 MG TABLET PO SCH (20:20)
[2022-02-28] MEDS: OLANZapine 10 MG RAPDIS TABLET PO SCH (20:20)
[2022-02-28] MEDS: DIVALPROEX SODIUM 500 MG ER TABLET PO SCH (20:20)
[2022-02-28] MEDS: ZOLPIDEM TARTRATE 10 MG TABLET PO PRN (20:21)
[2022-03-01 04:05] VITALS: BP 124/82
[2022-03-01] MEDS: FLUoxetine HCL 20 MG CAPSULE PO SCH (08:18)
[2022-03-01] MEDS: OMEGA-3/DHA/EPA/FISH OIL 1,000 MG CAPSULE PO SCH (08:18)
[2022-03-01] MEDS: THIAMINE 100 MG TABLET PO SCH (08:18)
[2022-03-01] MEDS: MULTIVITAMINS WITH MINERALS, THERAPEUTIC TABLET PO SCH (08:18)
[2022-03-01] MEDS: NALTREXONE HCL 50 MG TABLET PO SCH (08:18)
[2022-03-01] MEDS: FOLIC ACID 1 MG TABLET PO SCH (08:18)
[2022-03-01] MEDS: BACITRACIN 28 GM OINTMENT TP SCH ×2 (08:19→16:38)
[2022-03-01] MEDS: OLANZapine 5 MG RAPDIS TABLET PO PRN (14:03)
[2022-03-01] MEDS: LORazepam 2 MG TABLET PO PRN ×2 (14:03→18:06)
[2022-03-01 16:05] VITALS: BP 121/72
[2022-03-01] MEDS: OLANZapine 10 MG RAPDIS TABLET PO SCH (20:21)
[2022-03-01] MEDS: MELATONIN 5 MG TABLET PO SCH (20:21)
[2022-03-01] MEDS: DIVALPROEX SODIUM 500 MG ER TABLET PO SCH (20:21)
[2022-03-02 05:47] VITALS: BP 109/62
[2022-03-02 07:10] LABS: BASOPHILS % (AUTO) 0.4 % (0.0-2.0); EOSINOPHILS % (AUTO) 7.2 % (1.0-6.0); HEMATOCRIT 34.5 % (41-53); HEMOGLOBIN 11.2 g/dL (13.5-17.5); LYMPHOCYTES % (AUTO) 29.6 % (22.0-44.0); MEAN CORPUSCULAR HEMOGLOBIN 23.5 pg (26.0-34.0); MEAN CORPUSCULAR HGB CONC 32.5 G/dL (31.0-37.0); MEAN CORPUSCULAR VOLUME 72 fL (80-100); MONOCYTES # (AUTO) 0.5 K/uL (0.1-1.0); MONOCYTES % (AUTO) 7.2 % (2.0-9.0); NEUTROPHILS # (AUTO) 3.8 K/uL (1.8-7.7); NEUTROPHILS % (AUTO) 55.6 % (40.0-70.0); PLATELET COUNT (AUTO) 250 K/uL (150-450); RED BLOOD CELL COUNT(AUTO) 4.78 MIL/uL (4.50-5.90); RED CELL DISTRIBUTION WIDTH 15.7 % (11.5-14.5)
[2022-03-02 07:21] LABS: HEMOGLOBIN A1C 5.7 % (3.8-5.6)
[2022-03-02 07:34] LABS: ALANINE AMINOTRANSFERASE 22 U/L (12-78); ALBUMIN 2.8 g/dL (3.4-5.0); ALKALINE PHOSPHATASE 74 U/L (46-116); ASPARTATE AMINOTRANSFERASE 15 U/L (15-37); BILIRUBIN,TOTAL 0.2 mg/dL (0.1-1.0); CALCIUM, TOTAL 8.8 mg/dL (8.8-10.5); CARBON DIOXIDE 31 mmol/L (22-29); CHOL/HDL RATIO 2.7 (4.2-7.3); CHOLESTEROL 167 mg/dL (131-200); CREATININE 0.68 mg/dL (0.60-1.30); FREE T4 (FREE THYROXINE) 0.69 ng/dL (0.76-1.46); GLOMERULAR FILTR. RATE CALC > 60 mL/min (>60); GLUCOSE,RANDOM 79 mg/dL (70-110); HDL CHOLESTEROL 61 mg/dL (40-60); LDL CHOL (CALC.) 90 mg/dL (0-130); THYROID STIMULATING HORMONE 1.22 uIU/mL (0.36-3.74); TOTAL PROTEIN, SERUM 6.4 g/dL (6.4-8.2); TRIGLYCERIDES 80 mg/dL (15-150); UREA NITROGEN, BLOOD 21 mg/dL (7-18)
[2022-03-02 07:38] LABS: ANION GAP 6 mmol/L (8-16); CHLORIDE 104 mmol/L (98-107); POTASSIUM 4.4 mmol/L (3.5-5.1); SODIUM SERUM 141 mmol/L (136-145)
[2022-03-02 08:11] VITALS: BP 115/70
[2022-03-02] MEDS: OMEGA-3/DHA/EPA/FISH OIL 1,000 MG CAPSULE PO SCH (08:34)
[2022-03-02] MEDS: NALTREXONE HCL 50 MG TABLET PO SCH (08:34)
[2022-03-02] MEDS: MULTIVITAMINS WITH MINERALS, THERAPEUTIC TABLET PO SCH (08:35)
[2022-03-02] MEDS: LORazepam 2 MG TABLET PO PRN (08:35)
[2022-03-02] MEDS: BACITRACIN 28 GM OINTMENT TP SCH ×2 (08:35→17:41)
[2022-03-02] MEDS: FLUoxetine HCL 20 MG CAPSULE PO SCH (08:35)
[2022-03-02 16:11] VITALS: BP 121/62
[2022-03-02] MEDS: OLANZapine 10 MG RAPDIS TABLET PO SCH (20:37)
[2022-03-02] MEDS: DIVALPROEX SODIUM 500 MG ER TABLET PO SCH (20:37)
[2022-03-02] MEDS: MELATONIN 5 MG TABLET PO SCH (20:37)
[2022-03-03 00:21] VITALS: BP 128/79
[2022-03-03] MEDS: MULTIVITAMINS WITH MINERALS, THERAPEUTIC TABLET PO SCH (08:15)
[2022-03-03 08:16] VITALS: BP 118/64
[2022-03-03] MEDS: NALTREXONE HCL 50 MG TABLET PO SCH (08:16)
[2022-03-03] MEDS: OMEGA-3/DHA/EPA/FISH OIL 1,000 MG CAPSULE PO SCH (08:16)
[2022-03-03] MEDS: FLUoxetine HCL 20 MG CAPSULE PO SCH (08:16)
[2022-03-03] MEDS: LORazepam 2 MG TABLET PO PRN ×2 (08:16→16:59)
[2022-03-03] MEDS: BACITRACIN 28 GM OINTMENT TP SCH ×2 (09:27→16:59)
[2022-03-03 16:15] VITALS: BP 120/65
[2022-03-03] MEDS: MELATONIN 5 MG TABLET PO SCH (20:11)
[2022-03-03] MEDS: OLANZapine 10 MG RAPDIS TABLET PO SCH (20:12)
[2022-03-03] MEDS: DIVALPROEX SODIUM 500 MG ER TABLET PO SCH (20:12)
[2022-03-04 02:21] VITALS: BP 110/73
[2022-03-04 03:12] VITALS: BP 110/73
[2022-03-04] MEDS: MULTIVITAMINS WITH MINERALS, THERAPEUTIC TABLET PO SCH (08:30)
[2022-03-04] MEDS: NALTREXONE HCL 50 MG TABLET PO SCH (08:31)
[2022-03-04] MEDS: BACITRACIN 28 GM OINTMENT TP SCH ×2 (08:31→16:01)
[2022-03-04] MEDS: OMEGA-3/DHA/EPA/FISH OIL 1,000 MG CAPSULE PO SCH (08:31)
[2022-03-04] MEDS: FLUoxetine HCL 20 MG CAPSULE PO SCH (08:31)
[2022-03-04] MEDS: LORazepam 2 MG TABLET PO PRN ×2 (08:32→16:01)
[2022-03-04 08:33] VITALS: BP 124/65
[2022-03-04 16:18] VITALS: BP 104/65
[2022-03-04] MEDS: OLANZapine 10 MG RAPDIS TABLET PO SCH (20:02)
[2022-03-04] MEDS: DIVALPROEX SODIUM 500 MG ER TABLET PO SCH (20:02)
[2022-03-04] MEDS: MELATONIN 5 MG TABLET PO SCH (20:02)
[2022-03-05 00:35] VITALS: BP 108/69
[2022-03-05 08:28] VITALS: BP 112/73
[2022-03-05] MEDS: OMEGA-3/DHA/EPA/FISH OIL 1,000 MG CAPSULE PO SCH (09:10)
[2022-03-05] MEDS: FLUoxetine HCL 20 MG CAPSULE PO SCH (09:10)
[2022-03-05] MEDS: BACITRACIN 28 GM OINTMENT TP SCH ×2 (09:11→17:25)
[2022-03-05] MEDS: NALTREXONE HCL 50 MG TABLET PO SCH (09:11)
[2022-03-05] MEDS: MULTIVITAMINS WITH MINERALS, THERAPEUTIC TABLET PO SCH (09:11)
[2022-03-05 16:06] VITALS: BP 121/79
[2022-03-05] MEDS: LORazepam 2 MG TABLET PO PRN (17:25)
[2022-03-05] MEDS: MELATONIN 5 MG TABLET PO SCH (19:56)
[2022-03-05] MEDS: OLANZapine 5 MG RAPDIS TABLET PO PRN (19:56)
[2022-03-05] MEDS: ZOLPIDEM TARTRATE 10 MG TABLET PO PRN (19:56)
[2022-03-05] MEDS: DIVALPROEX SODIUM 500 MG ER TABLET PO SCH (19:56)
[2022-03-05] MEDS: OLANZapine 10 MG RAPDIS TABLET PO SCH (21:07)
[2022-03-06 01:50] VITALS: BP 131/82
[2022-03-06] MEDS: LORazepam 2 MG TABLET PO PRN ×2 (08:04→16:24)
[2022-03-06] MEDS: NALTREXONE HCL 50 MG TABLET PO SCH (08:04)
[2022-03-06] MEDS: MULTIVITAMINS WITH MINERALS, THERAPEUTIC TABLET PO SCH (08:04)
[2022-03-06] MEDS: OMEGA-3/DHA/EPA/FISH OIL 1,000 MG CAPSULE PO SCH (08:04)
[2022-03-06] MEDS: FLUoxetine HCL 20 MG CAPSULE PO SCH (08:04)
[2022-03-06 08:08] VITALS: BP 127/85
[2022-03-06] MEDS: BACITRACIN 28 GM OINTMENT TP SCH ×2 (09:00→16:45)
[2022-03-06 16:12] VITALS: BP 112/72
[2022-03-06] MEDS: ZOLPIDEM TARTRATE 10 MG TABLET PO PRN (20:02)
[2022-03-06] MEDS: MELATONIN 5 MG TABLET PO SCH (20:02)
[2022-03-06] MEDS: OLANZapine 10 MG RAPDIS TABLET PO SCH (20:02)
[2022-03-06] MEDS: DIVALPROEX SODIUM 500 MG ER TABLET PO SCH (20:02)
[2022-03-07 04:29] VITALS: BP 116/71
[2022-03-07] MEDS: FLUoxetine HCL 20 MG CAPSULE PO SCH (08:13)
[2022-03-07] MEDS: LORazepam 2 MG TABLET PO PRN (08:14)
[2022-03-07] MEDS: MULTIVITAMINS WITH MINERALS, THERAPEUTIC TABLET PO SCH (08:14)
[2022-03-07] MEDS: OMEGA-3/DHA/EPA/FISH OIL 1,000 MG CAPSULE PO SCH (08:14)
[2022-03-07] MEDS: NALTREXONE HCL 50 MG TABLET PO SCH (08:14)
[2022-03-07] MEDS: BACITRACIN 28 GM OINTMENT TP SCH (08:15)
[2022-03-07 08:26] VITALS: BP 101/64
[2022-03-07] MEDS ORDERED: OMEG-108 PO (11:30)
[2022-03-07] MEDS ORDERED: PROZ20 PO (11:30)
[2022-03-07] MEDS ORDERED: DIVA-80 PO (11:30)
[2022-03-07] MEDS ORDERED: OLAN10TA26 PO (11:30)
[2022-03-07] MEDS ORDERED: NALT50TA PO (11:30)
[2022-03-07] MEDS ORDERED: MELA5TAB40 PO (11:30)
== END 2022-03-07 13:09 | disposition home or self-care (01) | DRG 750 ==
LOC: B3A 10:35
PROVIDERS: ADMIT Psychiatry & Neurology Psychiatry; ATTEND Psychiatry & Neurology Psychiatry
DX: F25.1 Schizoaffective disorder, depressive type (principal); Z59.00 Homelessness unspecified; F10.10 Alcohol abuse, uncomplicated; F25.0 Schizoaffective disorder, bipolar type; F41.9 Anxiety disorder, unspecified; F60.0 Paranoid personality disorder; Z20.822 Contact with and (suspected) exposure to COVID-19; G89.29 Other chronic pain; F32.9 Major depressive disorder, single episode, unspecified; R68.84 Jaw pain; J44.9 Chronic obstructive pulmonary disease, unspecified; F12.10 Cannabis abuse, uncomplicated; F15.10 Other stimulant abuse, uncomplicated; R41.843 Psychomotor deficit; M79.673 Pain in unspecified foot; Y90.9 Presence of alcohol in blood, level not specified; Z55.9 Problems related to education and literacy, unspecified; Z63.9 Problem related to primary support group, unspecified; Z65.3 Problems related to other legal circumstances; Z87.891 Personal history of nicotine dependence; Z91.14 Patient's other noncompliance with medication regimen; Z91.19 Patient's noncompliance with other medical treatment and regimen; Z91.52 Personal history of nonsuicidal self-harm; Y93.39 Activity, other involving climbing, rappelling and jumping off; Z59.02 Unsheltered homelessness; Z71.51 Drug abuse counseling and surveillance of drug abuser; Z71.41 Alcohol abuse counseling and surveillance of alcoholic; Z91.018 Allergy to other foods
CPT/HCPCS: 70100; 70486; 80053; 80061; 83036; 84439; 84443; 85025; 86592; Q9967

== ENCOUNTER 2023-07-29 23:52 | Inpatient (IN) | payer MEDICAID, OTHER ==
[~2023-07-29] VITALS: Ht 182.9 cm; Wt 70.3 kg
[~2023-07-29 23:52] MED LIST changes: -CHLO100T23 PO; -DIVA-80 PO; +DIVA500T53 PO; +MELA5TAB40 PO; +NALT50TA PO; +OLAN10TA26 PO; +OMEG-135 PO; +PROZ20 PO
[2023-07-30 01:14] LABS: BASOPHILS % (AUTO) 0.8 % (0.0-2.0); EOSINOPHILS % (AUTO) 3.9 % (1.0-6.0); HEMATOCRIT 33.9 % (41-53); HEMOGLOBIN 10.7 g/dL (13.5-17.5); LYMPHOCYTES # (AUTO) 1.5 K/uL (1.0-4.8); LYMPHOCYTES % (AUTO) 24.8 % (22.0-44.0); MEAN CORPUSCULAR HEMOGLOBIN 22.4 pg (26.0-34.0); MEAN CORPUSCULAR HGB CONC 31.5 G/dL (31.0-37.0); MEAN CORPUSCULAR VOLUME 71 fL (80-100); MONOCYTES # (AUTO) 0.5 K/uL (0.1-1.0); MONOCYTES % (AUTO) 7.9 % (2.0-9.0); NEUTROPHILS # (AUTO) 3.8 K/uL (1.8-7.7); NEUTROPHILS % (AUTO) 62.6 % (40.0-70.0); PLATELET COUNT (AUTO) 365 K/uL (150-450); RED BLOOD CELL COUNT(AUTO) 4.77 MIL/uL (4.50-5.90); RED CELL DISTRIBUTION WIDTH 14.7 % (11.5-14.5)
[2023-07-30] MEDS ORDERED: HALOPERIDOL LACTATE 5 MG/ML VIAL IM ONE ×2 (01:15→11:15)
[2023-07-30] MEDS ORDERED: DiphenhydrAMINE HCL 50 MG/ML VIAL IM ONE ×2 (01:15→11:15)
[2023-07-30] MEDS ORDERED: LORazepam 2 MG/ML VIAL IM ONE ×2 (01:15→11:15)
[2023-07-30 01:20] LABS: RBC MORPHOLOGY COMMENT ABNORMAL RBC MORPH
[2023-07-30 01:26] LABS: ANION GAP 8 mmol/L (8-16); CALCIUM, TOTAL 9.1 mg/dL (8.8-10.5); CARBON DIOXIDE 29 mmol/L (22-29); CHLORIDE 103 mmol/L (98-107); CREATININE 0.91 mg/dL (0.60-1.30); GLOMERULAR FILTR. RATE CALC > 60 mL/min (>60); GLUCOSE,RANDOM 97 mg/dL (70-110); POTASSIUM 3.5 mmol/L (3.5-5.1); SODIUM SERUM 140 mmol/L (136-145); UREA NITROGEN, BLOOD 22 mg/dL (7-18)
[2023-07-30 01:27] LABS: ALANINE AMINOTRANSFERASE 34 U/L (12-78); ALBUMIN 2.9 g/dL (3.4-5.0); ALKALINE PHOSPHATASE 84 U/L (46-116); ASPARTATE AMINOTRANSFERASE 43 U/L (15-37); BILIRUBIN,TOTAL 0.3 mg/dL (0.1-1.0); TOTAL PROTEIN, SERUM 6.7 g/dL (6.4-8.2)
[2023-07-30 01:29] LABS: ALCOHOL, BLOOD (SERUM) < 3 mg/dL (0-10)
[2023-07-30] MEDS ORDERED: HALOPERIDOL 5 MG TABLET PO PRN (04:45)
[2023-07-30 07:14] LABS: COVID AG,FIA SOURCE NASAL SWAB
[2023-07-30 07:49] LABS: SARS-COV2 (COVID) ANTIGEN,FIA Negative (Negative)
[2023-07-30 09:41] VITALS: BP 129/77; PULSE 76; RESP 18; TEMP 97.8
[2023-07-30 09:48] LABS: APPEARANCE,URINE CLEAR (CLEAR); BILIRUBIN,URINE NEGATIVE (NEGATIVE); COLOR,URINE LIGHT YELLOW (YELLOW); GLUCOSE, URINE (UA) NEGATIVE (NEGATIVE); KETONES,URINE NEGATIVE (NEGATIVE); LEUKOCYTE ESTERASE ,URINE TRACE (NEGATIVE); NITRATE,URINE NEGATIVE (NEGATIVE); OCCULT BLOOD,URINE NEGATIVE (NEGATIVE); PH,URINE 6.5 (5.0-8.0); PH,URINE DRUG SCREEN 6.5 (5.0-8.0); PROTEIN,URINE NEGATIVE (NEGATIVE); SPECIFIC GRAVITIY, URINE 1.028 (1.003-1.030); UROBILINOGEN,URINE <=1.0 mg/dL (<=1.0)
[2023-07-30 09:56] LABS: BACTERIA,URINE None Seen /HPF (None Seen); RBC,URINE None Seen /HPF (0-2); WBC,URINE 0-2 /HPF (0-5)
[2023-07-30 09:59] LABS: ALCOHOL, URINE DRUG SCREEN NEGATIVE (NEGATIVE); AMPHET/METH SCREEN,URINE POSITIVE (NEGATIVE); BARBITURATE SCREEN, URINE NEGATIVE (NEGATIVE); BENZODIAZEPINES SCREEN,URINE NEGATIVE (NEGATIVE); CANNABINOID SCREEN,URINE NEGATIVE (NEGATIVE); COCAINE SCREEN,URINE NEGATIVE (NEGATIVE); METHADONE SCREEN, URINE NEGATIVE (NEGATIVE); OPIATE SCREEN,URINE NEGATIVE (NEGATIVE); PHENCYCLIDINE SCREEN,URINE NEGATIVE (NEGATIVE)
[2023-07-30] MEDS ORDERED: PROMETHAZINE HCL 25 MG TABLET PO PRN (10:30)
[2023-07-30] MEDS ORDERED: MAGNESIUM HYDROXIDE SUSPENSION 30 ML UDCUP PO PRN (10:30)
[2023-07-30] MEDS ORDERED: TUBERCULIN, PURIFIED PROTEIN DERIVATIVE 5 TU/0.1 ML SYRINGE ID ONE (10:30)
[2023-07-30] MEDS ORDERED: ACETAMINOPHEN 325 MG TABLET PO PRN (10:30)
[2023-07-30] MEDS ORDERED: GuaiFENesin/D-METHORPHAN [SUGAR-FREE] 200-20MG/10 ML SYRUP UDCUP PO PRN (10:30)
[2023-07-30] MEDS ORDERED: HydrOXYzine PAMOATE 50 MG CAPSULE PO PRN (10:30)
[2023-07-30] MEDS ORDERED: LOPERAMIDE HCL 2 MG CAPSULE PO PRN (10:30)
[2023-07-30] MEDS ORDERED: MAG HYDROX/ALUMINUM HYD/SIMETH ES 30 ML SUSPENSION UDCUP PO PRN (10:30)
[2023-07-30] MEDS ORDERED: FLUO20CA36 PO (15:59)
[2023-07-30] MEDS ORDERED: PALIPERIDONE PALMITATE 234 MG/1.5 ML SYRINGE IM ONE (16:00)
[2023-07-30 16:37] VITALS: BP 124/68; PULSE 66; RESP 15; TEMP 97.8; O2SAT 98
[2023-07-30] MEDS: THIAMINE 100 MG TABLET PO SCH (16:46)
[2023-07-30] MEDS: DOXYCYCLINE HYCLATE 100 MG TABLET PO SCH (16:46)
[2023-07-30] MEDS: MELATONIN 5 MG TABLET PO SCH (20:10)
[2023-07-30] MEDS: DIVALPROEX SODIUM 500 MG ER TABLET PO SCH (20:10)
[2023-07-30 20:17] VITALS: BP 127/77; PULSE 64; RESP 18; TEMP 97.8; O2SAT 98
[2023-07-30] MEDS ORDERED: OLANZapine 5 MG RAPDIS TABLET PO SCH (21:00)
[2023-07-31 08:19] VITALS: BP 129/77; PULSE 71; RESP 18; TEMP 97.5; O2SAT 98
[2023-07-31] MEDS: OMEGA-3/DHA/EPA/FISH OIL 1,000 MG CAPSULE PO SCH (09:47)
[2023-07-31] MEDS: MULTIVITAMINS WITH MINERALS, THERAPEUTIC TABLET PO SCH (09:48)
[2023-07-31] MEDS: NALTREXONE HCL 50 MG TABLET PO SCH (09:48)
[2023-07-31] MEDS: FOLIC ACID 1 MG TABLET PO SCH (09:48)
[2023-07-31] MEDS: FLUoxetine HCL 20 MG CAPSULE PO SCH (09:48)
[2023-07-31] MEDS: DOXYCYCLINE HYCLATE 100 MG TABLET PO SCH ×2 (09:48→17:16)
[2023-07-31] MEDS: THIAMINE 100 MG TABLET PO SCH ×2 (09:48→17:16)
[2023-07-31] MEDS: LORazepam 2 MG TABLET PO PRN ×2 (11:12→17:16)
[2023-07-31] MEDS: OLANZapine 5 MG RAPDIS TABLET PO PRN (11:12)
[2023-07-31] MEDS ORDERED: IBUPROFEN 600 MG TABLET PO PRN (16:00)
[2023-07-31] MEDS ORDERED: ACETAMINOPHEN 325 MG TABLET PO PRN (16:00)
[2023-07-31] MEDS: OLANZapine 10 MG RAPDIS TABLET PO SCH (20:13)
[2023-07-31] MEDS: ZOLPIDEM TARTRATE 10 MG TABLET PO PRN (20:13)
[2023-07-31] MEDS: MELATONIN 5 MG TABLET PO SCH (20:13)
[2023-07-31] MEDS: DIVALPROEX SODIUM 500 MG ER TABLET PO SCH (20:13)
[2023-07-31 20:14] VITALS: BP 128/72; PULSE 77; RESP 18; TEMP 98; O2SAT 98
[2023-08-01] MEDS: NALTREXONE HCL 50 MG TABLET PO SCH (08:14)
[2023-08-01] MEDS: FLUoxetine HCL 20 MG CAPSULE PO SCH (08:14)
[2023-08-01 08:15] VITALS: BP 147/72; PULSE 79; RESP 17; TEMP 97.6; O2SAT 100
[2023-08-01] MEDS: THIAMINE 100 MG TABLET PO SCH ×2 (08:15→17:59)
[2023-08-01] MEDS: OMEGA-3/DHA/EPA/FISH OIL 1,000 MG CAPSULE PO SCH (08:15)
[2023-08-01] MEDS: MULTIVITAMINS WITH MINERALS, THERAPEUTIC TABLET PO SCH (08:15)
[2023-08-01] MEDS: FOLIC ACID 1 MG TABLET PO SCH (08:15)
[2023-08-01] MEDS: DOXYCYCLINE HYCLATE 100 MG TABLET PO SCH ×2 (08:29→17:59)
[2023-08-01] MEDS: GABAPENTIN 100 MG CAPSULE PO SCH ×2 (18:00→20:08)
[2023-08-01] MEDS: DIVALPROEX SODIUM 500 MG ER TABLET PO SCH (20:07)
[2023-08-01] MEDS: OLANZapine 10 MG RAPDIS TABLET PO SCH (20:07)
[2023-08-01] MEDS: MELATONIN 5 MG TABLET PO SCH (20:08)
[2023-08-01] MEDS: LORazepam 2 MG TABLET PO PRN (20:08)
[2023-08-01 20:09] VITALS: BP 134/76; PULSE 108; RESP 18; TEMP 97.8; O2SAT 97
[2023-08-02 08:27] VITALS: BP 122/65; PULSE 78; RESP 17; TEMP 97.7; O2SAT 98
[2023-08-02] MEDS ORDERED: DULoxetine HCL 20 MG CAPSULE PO SCH (09:00)
[2023-08-02] MEDS: GABAPENTIN 100 MG CAPSULE PO SCH ×4 (09:00→20:16)
[2023-08-02] MEDS: FOLIC ACID 1 MG TABLET PO SCH (09:13)
[2023-08-02] MEDS: OMEGA-3/DHA/EPA/FISH OIL 1,000 MG CAPSULE PO SCH (09:13)
[2023-08-02] MEDS: NALTREXONE HCL 50 MG TABLET PO SCH (09:14)
[2023-08-02] MEDS: DOXYCYCLINE HYCLATE 100 MG TABLET PO SCH ×2 (09:15→18:00)
[2023-08-02] MEDS: MULTIVITAMINS WITH MINERALS, THERAPEUTIC TABLET PO SCH (09:15)
[2023-08-02] MEDS: THIAMINE 100 MG TABLET PO SCH ×2 (09:40→17:00)
[2023-08-02] MEDS ORDERED: BACITRACIN 28 GM OINTMENT TP PRN (16:15)
[2023-08-02] MEDS: MELATONIN 5 MG TABLET PO SCH (20:16)
[2023-08-02] MEDS: OLANZapine 10 MG RAPDIS TABLET PO SCH (20:16)
[2023-08-02] MEDS: DIVALPROEX SODIUM 500 MG ER TABLET PO SCH (20:16)
[2023-08-02 20:24] VITALS: BP 127/66; PULSE 80; RESP 18; TEMP 97.9
[2023-08-03] MEDS: OMEGA-3/DHA/EPA/FISH OIL 1,000 MG CAPSULE PO SCH (08:12)
[2023-08-03] MEDS: DULoxetine HCL 30 MG CAPSULE PO SCH (08:12)
[2023-08-03] MEDS: MULTIVITAMINS WITH MINERALS, THERAPEUTIC TABLET PO SCH (08:12)
[2023-08-03] MEDS: THIAMINE 100 MG TABLET PO SCH ×2 (08:12→16:41)
[2023-08-03] MEDS: NALTREXONE HCL 50 MG TABLET PO SCH (08:12)
[2023-08-03] MEDS: FOLIC ACID 1 MG TABLET PO SCH (08:12)
[2023-08-03] MEDS: GABAPENTIN 100 MG CAPSULE PO SCH ×4 (08:13→20:25)
[2023-08-03 08:38] VITALS: BP 141/77; PULSE 74; RESP 20; TEMP 98; O2SAT 99
[2023-08-03] MEDS ORDERED: PALIPERIDONE PALMITATE 156 MG/ML SYRINGE IM ONE (09:00)
[2023-08-03] MEDS: DOXYCYCLINE HYCLATE 100 MG TABLET PO SCH ×2 (09:33→16:41)
[2023-08-03] MEDS: LORazepam 2 MG TABLET PO PRN (16:41)
[2023-08-03 20:14] VITALS: BP 138/82; PULSE 100; RESP 18; TEMP 97.8; O2SAT 99
[2023-08-03] MEDS: MELATONIN 5 MG TABLET PO SCH (20:25)
[2023-08-03] MEDS: ZOLPIDEM TARTRATE 10 MG TABLET PO PRN (20:25)
[2023-08-03] MEDS: OLANZapine 10 MG RAPDIS TABLET PO SCH (20:25)
[2023-08-03] MEDS: DIVALPROEX SODIUM 500 MG ER TABLET PO SCH (20:25)
[2023-08-04] MEDS: OMEGA-3/DHA/EPA/FISH OIL 1,000 MG CAPSULE PO SCH (08:32)
[2023-08-04] MEDS: FOLIC ACID 1 MG TABLET PO SCH (08:32)
[2023-08-04] MEDS: GABAPENTIN 100 MG CAPSULE PO SCH ×4 (08:32→20:49)
[2023-08-04] MEDS: THIAMINE 100 MG TABLET PO SCH ×2 (08:33→17:11)
[2023-08-04] MEDS: DOXYCYCLINE HYCLATE 100 MG TABLET PO SCH ×2 (08:33→17:11)
[2023-08-04] MEDS: NALTREXONE HCL 50 MG TABLET PO SCH (08:33)
[2023-08-04] MEDS: DULoxetine HCL 30 MG CAPSULE PO SCH (08:33)
[2023-08-04] MEDS: MULTIVITAMINS WITH MINERALS, THERAPEUTIC TABLET PO SCH (08:33)
[2023-08-04 09:22] VITALS: PULSE 104; RESP 16; TEMP 97.3; O2SAT 97
[2023-08-04] MEDS: LORazepam 2 MG TABLET PO PRN (17:11)
[2023-08-04] MEDS: OLANZapine 10 MG RAPDIS TABLET PO SCH (20:49)
[2023-08-04] MEDS: MELATONIN 5 MG TABLET PO SCH (20:49)
[2023-08-04] MEDS: DIVALPROEX SODIUM 500 MG ER TABLET PO SCH (20:49)
[2023-08-04] MEDS: ZOLPIDEM TARTRATE 10 MG TABLET PO PRN (20:49)
[2023-08-04 21:32] VITALS: BP 148/70; PULSE 70; RESP 17; TEMP 97.2; O2SAT 98
[2023-08-05] MEDS: MULTIVITAMINS WITH MINERALS, THERAPEUTIC TABLET PO SCH (08:21)
[2023-08-05] MEDS: OMEGA-3/DHA/EPA/FISH OIL 1,000 MG CAPSULE PO SCH (08:22)
[2023-08-05] MEDS: GABAPENTIN 100 MG CAPSULE PO SCH ×4 (08:22→20:13)
[2023-08-05] MEDS: NALTREXONE HCL 50 MG TABLET PO SCH (08:23)
[2023-08-05 08:28] VITALS: BP 128/79; PULSE 95; RESP 18; TEMP 97.7; O2SAT 97
[2023-08-05] MEDS: DOXYCYCLINE HYCLATE 100 MG TABLET PO SCH ×2 (08:48→16:59)
[2023-08-05] MEDS: THIAMINE 100 MG TABLET PO SCH ×2 (08:49→16:59)
[2023-08-05] MEDS: FOLIC ACID 1 MG TABLET PO SCH (08:50)
[2023-08-05] MEDS: DULoxetine HCL 30 MG CAPSULE PO SCH (09:51)
[2023-08-05] MEDS: LORazepam 2 MG TABLET PO PRN (16:59)
[2023-08-05 20:12] VITALS: BP 142/75; PULSE 108; RESP 20; TEMP 98; O2SAT 100
[2023-08-05] MEDS: OLANZapine 5 MG RAPDIS TABLET PO SCH (20:13)
[2023-08-05] MEDS: MELATONIN 5 MG TABLET PO SCH (20:13)
[2023-08-05] MEDS: ZOLPIDEM TARTRATE 10 MG TABLET PO PRN (20:14)
[2023-08-05] MEDS: DIVALPROEX SODIUM 500 MG ER TABLET PO SCH (20:14)
[2023-08-06] MEDS: NALTREXONE HCL 50 MG TABLET PO SCH (08:26)
[2023-08-06] MEDS: DOXYCYCLINE HYCLATE 100 MG TABLET PO SCH (08:26)
[2023-08-06] MEDS: FOLIC ACID 1 MG TABLET PO SCH (08:26)
[2023-08-06] MEDS: LORazepam 2 MG TABLET PO PRN ×2 (08:26→20:26)
[2023-08-06] MEDS: THIAMINE 100 MG TABLET PO SCH ×2 (08:26→16:50)
[2023-08-06] MEDS: OMEGA-3/DHA/EPA/FISH OIL 1,000 MG CAPSULE PO SCH (08:26)
[2023-08-06] MEDS: GABAPENTIN 100 MG CAPSULE PO SCH ×4 (08:26→20:26)
[2023-08-06] MEDS: MULTIVITAMINS WITH MINERALS, THERAPEUTIC TABLET PO SCH (08:26)
[2023-08-06 08:28] VITALS: BP 125/85; PULSE 100; RESP 17; TEMP 97.8; O2SAT 99
[2023-08-06] MEDS ORDERED: DULoxetine HCL 20 MG CAPSULE PO SCH (09:00)
[2023-08-06 20:21] VITALS: BP 130/66; PULSE 80; RESP 18; TEMP 98.2; O2SAT 98
[2023-08-06] MEDS: MELATONIN 5 MG TABLET PO SCH (20:26)
[2023-08-06] MEDS: DIVALPROEX SODIUM 500 MG ER TABLET PO SCH (20:26)
[2023-08-06] MEDS: OLANZapine 5 MG RAPDIS TABLET PO SCH (20:26)
[2023-08-07] MEDS: OMEGA-3/DHA/EPA/FISH OIL 1,000 MG CAPSULE PO SCH (08:14)
[2023-08-07] MEDS: MULTIVITAMINS WITH MINERALS, THERAPEUTIC TABLET PO SCH (08:14)
[2023-08-07] MEDS: FOLIC ACID 1 MG TABLET PO SCH (08:14)
[2023-08-07] MEDS: NALTREXONE HCL 50 MG TABLET PO SCH (08:24)
[2023-08-07] MEDS: GABAPENTIN 300 MG CAPSULE PO SCH ×4 (08:24→20:54)
[2023-08-07] MEDS: THIAMINE 100 MG TABLET PO SCH ×2 (08:24→17:13)
[2023-08-07] MEDS: LORazepam 2 MG TABLET PO PRN (08:51)
[2023-08-07] MEDS ORDERED: DULoxetine HCL 30 MG CAPSULE PO SCH (09:00)
[2023-08-07] MEDS ORDERED: DULoxetine HCL 20 MG CAPSULE PO SCH (09:00)
[2023-08-07 09:14] VITALS: BP 117/73; PULSE 101; RESP 17; TEMP 97.7; O2SAT 99
[2023-08-07 20:35] VITALS: BP 131/67; PULSE 100; RESP 17; TEMP 97; O2SAT 99
[2023-08-07] MEDS: OLANZapine 5 MG RAPDIS TABLET PO SCH (20:54)
[2023-08-07] MEDS: DIVALPROEX SODIUM 500 MG ER TABLET PO SCH (20:54)
[2023-08-07] MEDS: MELATONIN 5 MG TABLET PO SCH (20:55)
[2023-08-08] MEDS: OMEGA-3/DHA/EPA/FISH OIL 1,000 MG CAPSULE PO SCH (08:39)
[2023-08-08] MEDS: MULTIVITAMINS WITH MINERALS, THERAPEUTIC TABLET PO SCH (08:40)
[2023-08-08] MEDS: THIAMINE 100 MG TABLET PO SCH ×2 (08:40→16:48)
[2023-08-08] MEDS: NALTREXONE HCL 50 MG TABLET PO SCH (08:40)
[2023-08-08] MEDS: GABAPENTIN 400 MG CAPSULE PO SCH ×4 (08:40→20:58)
[2023-08-08] MEDS: FOLIC ACID 1 MG TABLET PO SCH (08:40)
[2023-08-08 08:44] VITALS: BP 122/69; PULSE 75; RESP 18; TEMP 97.7; O2SAT 99
[2023-08-08] MEDS ORDERED: DULoxetine HCL 20 MG CAPSULE PO SCH (09:00)
[2023-08-08] MEDS: OLANZapine 5 MG RAPDIS TABLET PO PRN (16:47)
[2023-08-08] MEDS: LORazepam 2 MG TABLET PO PRN (16:47)
[2023-08-08 20:51] VITALS: BP 130/66; PULSE 97; RESP 20; TEMP 98.2; O2SAT 98
[2023-08-08] MEDS: ZOLPIDEM TARTRATE 10 MG TABLET PO PRN (20:58)
[2023-08-08] MEDS: MELATONIN 5 MG TABLET PO SCH (20:58)
[2023-08-08] MEDS: OLANZapine 10 MG RAPDIS TABLET PO SCH (20:58)
[2023-08-08] MEDS: DIVALPROEX SODIUM 500 MG ER TABLET PO SCH (20:58)
[2023-08-09 08:28] VITALS: BP 113/67; PULSE 105; RESP 18; TEMP 97.9; O2SAT 98
[2023-08-09] MEDS: OMEGA-3/DHA/EPA/FISH OIL 1,000 MG CAPSULE PO SCH (08:52)
[2023-08-09] MEDS: FOLIC ACID 1 MG TABLET PO SCH (08:52)
[2023-08-09] MEDS: MULTIVITAMINS WITH MINERALS, THERAPEUTIC TABLET PO SCH (08:52)
[2023-08-09] MEDS: DULoxetine HCL 60 MG CAPSULE PO SCH (08:53)
[2023-08-09] MEDS: THIAMINE 100 MG TABLET PO SCH (08:53)
[2023-08-09] MEDS: NALTREXONE HCL 50 MG TABLET PO SCH (08:53)
[2023-08-09] MEDS: GABAPENTIN 400 MG CAPSULE PO SCH ×4 (08:54→21:14)
[2023-08-09] MEDS: LORazepam 2 MG TABLET PO PRN ×2 (12:06→17:21)
[2023-08-09 20:20] VITALS: BP 114/62; PULSE 106; RESP 18; TEMP 97.6; O2SAT 98
[2023-08-09] MEDS: MELATONIN 5 MG TABLET PO SCH (21:14)
[2023-08-09] MEDS: OLANZapine 10 MG RAPDIS TABLET PO SCH (21:14)
[2023-08-09] MEDS: ZOLPIDEM TARTRATE 10 MG TABLET PO PRN (21:14)
[2023-08-09] MEDS: DIVALPROEX SODIUM 500 MG ER TABLET PO SCH (21:14)
[2023-08-10] MEDS: DULoxetine HCL 60 MG CAPSULE PO SCH (08:46)
[2023-08-10] MEDS: NALTREXONE HCL 50 MG TABLET PO SCH (08:46)
[2023-08-10] MEDS: OMEGA-3/DHA/EPA/FISH OIL 1,000 MG CAPSULE PO SCH (08:46)
[2023-08-10] MEDS: MULTIVITAMINS WITH MINERALS, THERAPEUTIC TABLET PO SCH (08:46)
[2023-08-10] MEDS: GABAPENTIN 400 MG CAPSULE PO SCH ×4 (08:46→21:16)
[2023-08-10] MEDS: LORazepam 2 MG TABLET PO PRN (08:47)
[2023-08-10 09:32] VITALS: BP 125/67; PULSE 88; RESP 20; TEMP 98.4; O2SAT 98
[2023-08-10] MEDS ORDERED: GABAPENTIN 300 MG CAPSULE PO PRN (15:00)
[2023-08-10 20:12] VITALS: BP 127/75; PULSE 101; RESP 19; TEMP 98.1; O2SAT 100
[2023-08-10] MEDS: DIVALPROEX SODIUM 500 MG ER TABLET PO SCH (21:16)
[2023-08-10] MEDS: MELATONIN 5 MG TABLET PO SCH (21:16)
[2023-08-10] MEDS: ESZOPICLONE 3 MG TABLET PO SCH (21:16)
[2023-08-10] MEDS: OLANZapine 10 MG RAPDIS TABLET PO SCH (21:16)
[2023-08-11 08:14] LABS: HEMOGLOBIN A1C 5.9 % (3.8-5.6)
[2023-08-11 08:17] LABS: CHOL/HDL RATIO 2.4 (4.2-7.3); FREE T4 (FREE THYROXINE) 0.62 ng/dL (0.76-1.46); THYROID STIMULATING HORMONE 1.1 uIU/mL (0.36-3.74)
[2023-08-11 08:31] VITALS: BP 118/79; PULSE 86; RESP 16; TEMP 98; O2SAT 97
[2023-08-11] MEDS: GABAPENTIN 400 MG CAPSULE PO SCH (08:56)
[2023-08-11] MEDS: NALTREXONE HCL 50 MG TABLET PO SCH (08:56)
[2023-08-11] MEDS: DULoxetine HCL 60 MG CAPSULE PO SCH (08:56)
[2023-08-11] MEDS: OMEGA-3/DHA/EPA/FISH OIL 1,000 MG CAPSULE PO SCH (08:56)
[2023-08-11] MEDS: MULTIVITAMINS WITH MINERALS, THERAPEUTIC TABLET PO SCH (08:56)
[2023-08-11] MEDS: GABAPENTIN 300 MG CAPSULE PO SCH ×3 (13:45→20:38)
[2023-08-11 20:09] VITALS: BP 123/69; PULSE 98; RESP 20; TEMP 97.6; O2SAT 99
[2023-08-11] MEDS: MELATONIN 5 MG TABLET PO SCH (20:38)
[2023-08-11] MEDS: DIVALPROEX SODIUM 500 MG ER TABLET PO SCH (20:38)
[2023-08-11] MEDS: ESZOPICLONE 3 MG TABLET PO SCH (20:38)
[2023-08-11] MEDS: OLANZapine 10 MG RAPDIS TABLET PO SCH (20:38)
[2023-08-12] MEDS: GABAPENTIN 300 MG CAPSULE PO SCH ×4 (08:17→20:25)
[2023-08-12] MEDS: MULTIVITAMINS WITH MINERALS, THERAPEUTIC TABLET PO SCH (08:17)
[2023-08-12] MEDS: OMEGA-3/DHA/EPA/FISH OIL 1,000 MG CAPSULE PO SCH (08:17)
[2023-08-12] MEDS: NALTREXONE HCL 50 MG TABLET PO SCH (08:18)
[2023-08-12] MEDS: DULoxetine HCL 60 MG CAPSULE PO SCH (08:18)
[2023-08-12 08:26] VITALS: BP 106/64; PULSE 97; RESP 17; TEMP 97.8; O2SAT 95
[2023-08-12 20:16] VITALS: BP 118/70; PULSE 98; RESP 18; TEMP 97.8; O2SAT 97
[2023-08-12] MEDS: MELATONIN 5 MG TABLET PO SCH (20:20)
[2023-08-12] MEDS: OLANZapine 10 MG RAPDIS TABLET PO SCH (20:20)
[2023-08-12] MEDS: DIVALPROEX SODIUM 500 MG ER TABLET PO SCH (20:20)
[2023-08-12] MEDS: ESZOPICLONE 3 MG TABLET PO SCH (20:21)
[2023-08-13] MEDS ORDERED: DULO-113 PO (06:58)
[2023-08-13] MEDS ORDERED: GABA-1216 PO (06:58)
[2023-08-13] MEDS ORDERED: NALT50TA PO (06:58)
[2023-08-13] MEDS ORDERED: DIVA500T69 PO (06:58)
[2023-08-13] MEDS ORDERED: MELA5TAB40 PO (06:58)
[2023-08-13] MEDS ORDERED: OLAN10TA26 PO (06:58)
[2023-08-13] MEDS ORDERED: OMEG-135 PO (06:59)
[2023-08-13] MEDS: OMEGA-3/DHA/EPA/FISH OIL 1,000 MG CAPSULE PO SCH (08:38)
[2023-08-13] MEDS: MULTIVITAMINS WITH MINERALS, THERAPEUTIC TABLET PO SCH (08:39)
[2023-08-13] MEDS: DULoxetine HCL 60 MG CAPSULE PO SCH (08:39)
[2023-08-13] MEDS: NALTREXONE HCL 50 MG TABLET PO SCH (08:39)
[2023-08-13 08:43] VITALS: BP 130/68; RESP 18; TEMP 97.8; O2SAT 96
[2023-08-13] MEDS ORDERED: GABAPENTIN 100 MG CAPSULE PO SCH (09:00)
[2023-08-13] MEDS ORDERED: GABAPENTIN 300 MG CAPSULE PO SCH (09:00)
== END 2023-08-13 11:07 | disposition home or self-care (01) | DRG 750 ==
LOC: EMS 23:54 → B2X 07-30 09:00 → B3A 07-30 16:15
PROVIDERS: ADMIT Psychiatry & Neurology Psychiatry; ATTEND Psychiatry & Neurology Psychiatry
DX: F25.9 Schizoaffective disorder, unspecified (principal); R45.851 Suicidal ideations; D64.9 Anemia, unspecified; F60.3 Borderline personality disorder; F41.9 Anxiety disorder, unspecified; F15.20 Other stimulant dependence, uncomplicated; F12.20 Cannabis dependence, uncomplicated; Z20.822 Contact with and (suspected) exposure to COVID-19; F10.20 Alcohol dependence, uncomplicated; M54.2 Cervicalgia; R79.89 Other specified abnormal findings of blood chemistry; J44.9 Chronic obstructive pulmonary disease, unspecified; F17.210 Nicotine dependence, cigarettes, uncomplicated; F31.9 Bipolar disorder, unspecified; Z59.00 Homelessness unspecified; Z55.9 Problems related to education and literacy, unspecified; Z63.9 Problem related to primary support group, unspecified; Z65.3 Problems related to other legal circumstances; Z91.52 Personal history of nonsuicidal self-harm; Z91.018 Allergy to other foods
CPT/HCPCS: 80053; 80061; 80164; 80307; 81001; 83036; 84439; 84443; 85025; 86592; 99285; G0480; J1200; J1630; J2060; Q9967

== ENCOUNTER 2023-07-30 12:22 | Emergency (ER) | payer MEDICAID, OTHER ==
[~2023-07-30] VITALS: Ht 175.3 cm; Wt 69.0 kg
[2023-07-30 12:45] VITALS: BP 113/65; PULSE 88; RESP 18; TEMP 97.8
[2023-07-30] MEDS ORDERED: BACITRACIN 0.9 GM PACKET OINTMENT TP ONE (12:45)
[2023-07-30] MEDS ORDERED: DOXYCYCLINE HYCLATE 100 MG TABLET PO ONE (12:45)
[2023-07-30] MEDS ORDERED: FLUO20CA36 PO (15:59)
== END 2023-07-30 14:06 | disposition home or self-care (01) ==
LOC: EMS 12:24
DX: S61.207A Unspecified open wound of left little finger without damage to nail, initial encounter (principal); F41.9 Anxiety disorder, unspecified; F31.9 Bipolar disorder, unspecified; F20.9 Schizophrenia, unspecified; G89.29 Other chronic pain; F90.9 Attention-deficit hyperactivity disorder, unspecified type; F17.210 Nicotine dependence, cigarettes, uncomplicated; F12.90 Cannabis use, unspecified, uncomplicated; F15.90 Other stimulant use, unspecified, uncomplicated; Z98.890 Other specified postprocedural states; Z91.018 Allergy to other foods; X58.XXXA Exposure to other specified factors, initial encounter; Y93.89 Activity, other specified; Y92.89 Other specified places as the place of occurrence of the external cause; Y99.8 Other external cause status
CPT/HCPCS: 99283

== ENCOUNTER 2025-09-12 08:57 | Emergency (ER) | payer OTHER ==
[~2025-09-12] VITALS: Ht 175.3 cm; Wt 86.0 kg
[~2025-09-12 08:57] MED LIST changes: -DIVA500T53 PO; +DIVA500T69 PO; +DULO60CA73 PO; +GABA-1216 PO; -NALT50TA PO; +NALT50TA6 PO; -PROZ20 PO
[2025-09-12 09:40] VITALS: TEMP 98.8
[2025-09-12] MEDS: CHLORHEXIDINE GLUCONATE 0.12% 15 ML UDCUP ORAL RINSE PO ONE (11:20)
[2025-09-12 13:00] VITALS: BP 147/77; PULSE 84; RESP 18; O2SAT 97
== END 2025-09-12 13:30 | disposition home or self-care (01) ==
LOC: EMS 08:57
DX: K12.1 Other forms of stomatitis (principal); F41.9 Anxiety disorder, unspecified; F20.9 Schizophrenia, unspecified; F31.9 Bipolar disorder, unspecified; G89.29 Other chronic pain; F17.210 Nicotine dependence, cigarettes, uncomplicated; F12.90 Cannabis use, unspecified, uncomplicated; F15.90 Other stimulant use, unspecified, uncomplicated; Z98.890 Other specified postprocedural states; Z79.899 Other long term (current) drug therapy; Z91.018 Allergy to other foods
CPT/HCPCS: 99283